=== PATIENT | female | born 1950 | race Caucasian/White ===

== ENCOUNTER 2017-10-11 10:22 | Inpatient (IN) ==
[2017-10-11] MEDS ORDERED: Ketorolac Inj 30 MG/ML (IVP) Vial IV.PUSH ONE (10:51)
[2017-10-11] MEDS ORDERED: Sodium Chlor 0.9% Inj 500 ML IV.SIG ONE ×2 (10:51→11:57)
--- NOTE | 2017-10-11 11:39 | ED ---
HPI General Chief complaint: Urogenital-Female Stated complaint: Rt Flank Pain/Fever x Yesterday Time Seen by Provider: 10/11/17 10:42 Source: patient Mode of arrival: ambulatory Limitations: no limitations History of Present Illness HPI narrative: Patient is a 67-year-old female who comes in fever and right- sided abdominal pain. She was here 2 days ago and was diagnosed with a 7 mm obstructing renal stone. She was discharged with prescriptions for Flomax and pain medicine and advised follow-up with urology. She says she called the urologist's office yesterday with no answer. She says yesterday she started to develop a fever. She says she had a temperature of 102.7 this morning. She says she has not taken anything for her fever or her pain. She has had some nausea, but denies any vomiting. She says the pain started in her right flank 2 days ago, but now is in the right lower quadrant. She denies any difficulty urinating. She denies any dysuria. She says that she has had problems in the past when she became febrile and was worried that was going to happen again. Severity is moderate. Related Data Home Medications Medication Instructions Recorded Confirmed atenolol 50 mg PO DAILY 10/11/17 10/11/17 atorvastatin [Lipitor] 10 mg PO DAILY 10/11/17 10/11/17 Previous Rx's Medication Instructions Recorded hydrocodone-acetaminophen 1 tab PO Q8H PRN #10 tab 10/10/17 ketorolac 10 mg PO Q6H 4 Days #16 tab 10/10/17 Allergies Allergy/AdvReac Type Severity Reaction Status Date / Time No Known Allergies Allergy Verified 10/10/17 01:01 Review of Systems Except as stated in HPI: all other systems reviewed are negative Constitutional Reports fever(s) ENT Denies dizziness Cardiovascular Denies chest pain and Denies dyspnea Respiratory Denies dyspnea Gastrointestinal Reports abdominal pain, Reports nausea and Denies vomiting Genitourinary Denies dysuria Musculoskeletal Denies myalgias and Denies arthralgias Integumentary/Breasts Denies change in pigmentation and Denies lesions Neurologic Denies focal weakness [facility] Medical History Medical History H/O hyperlipidemia (Acute) H/O renal calculi (Acute) H/O: hypertension (Acute) Surgical History Surgical History History of kidney surgery (Acute) Hx of tonsillectomy (Acute) Social History Social History Substance History: No History of Abuse Second Hand Smoke Exposure: Yes Smoking Status: Never smoker How Often Do You Have a Drink Containing Alcohol: Monthly or less Recent Travel in [facility] within the Last 8 Weeks: No Recent Out of Country Travel within the Last 8 Weeks: No Immunization History Tetanus Immunization: <5 Years Hx Influenza Vaccine This Season: No Exam Narrative Exam Narrative: GENERAL: Awake and alert, in no acute distress. SKIN: Focused skin assessment warm/dry. No wounds or signs of infection. HEAD: Atraumatic. Normocephalic. EYES: Pupils equal and round. No scleral icterus. ENT: Mucous membranes pink and moist. NECK: Trachea midline. No JVD. CARDIOVASCULAR: Regular rate and rhythm. No murmur appreciated. RESPIRATORY: No accessory muscle use. Clear to auscultation. Breath sounds equal bilaterally. GASTROINTESTINAL: Abdomen soft, non-tender, nondistended. MUSCULOSKELETAL: No obvious deformities. No clubbing. No cyanosis. No edema. NEUROLOGICAL: Awake and alert. No obvious cranial nerve deficits. Motor grossly within normal limits. Normal speech. PSYCHIATRIC: Appropriate mood and affect; insight and judgment normal. Course Reevaluation(s) Reevaluation #1: Patient became acutely altered. She started saying things that did not make sense. There is no focal weakness on exam. I believe her symptoms are due to sepsis. However, CT of the head has been ordered. Time: 12:04 Reevaluation #2: Patient has return to her baseline mental status. Time: 12:30 Initial Documented Vital Signs Temperature 99.9 F H 10/11/17 10:28 Pulse Rate 103 H 10/11/17 10:28 Respiratory Rate 16 10/11/17 10:28 Blood Pressure 128/66 10/11/17 10:28 Pulse Oximetry 95 10/11/17 10:28 Last Documented Vital Signs Temperature 100.3 F H 10/12/17 08:00 Pulse Rate 83 10/12/17 08:00 Respiratory Rate 18 10/12/17 08:00 Blood Pressure 134/68 10/12/17 08:00 Pulse Oximetry 96 10/12/17 09:21 Medical Decision Making [facility] Narrative Medical decision making narrative: Patient is a 67-year-old female who comes in complaining of right lower quadrant abdominal pain. She was here 2 days ago and was found to have enlarged renal stone. She comes back because the pain is changed and she has developed a fever. IV established, labs sent. Patient connected to the cardiac monitor technician. While patient was here, she became acutely altered. She did not have any focal weaknesses. I believe the altered mental status is likely due to sepsis. She did quickly return to baseline mental status. Patient given IV fluids, started on vancomycin and Zosyn. CT abdomen and pelvis performed shows a large obstructing stone with hydronephrosis. Patient' s labs show an elevated white blood cell count. Creatinine has increased from 1.1 to 1.6. Her total bilirubin is also elevated to 1.7. Lactic acid is 3.4. She is currently not tender in the right upper quadrant. Urology consulted, Dr. Frank jc several times without response. Patient will be admitted for further management. Differential Diagnosis Differential Diagnosis: Sepsis versus dehydration versus electrolyte abnormality versus UTI versus renal stone Medical Records Medical records reviewed: Yes I reviewed the patient's medical records. Lab Data Lab results reviewed: Yes I reviewed the patient's lab results. Result diagrams: 10/12/17 05:09 10/12/17 05:19 Lab Results 10/11/17 10/11/17 10/11/17 Range/Units 11:55 11:55 11:55 CBC w Diff Auto diff final WBC 16.4 H (4.0-11.0) th/mm3 RBC 4.03 (4.00-5.30) mil/mm3 Hgb 12.4 D (11.6-15.3) gm/dL Hct 36.9 (35.0-46.0) % MCV 91.7 (80.0-100.0) fL MCH 30.7 (27.0-34.0) pg MCHC 33.5 (32.0-36.0) % RDW 12.5 (11.6-17.2) % Plt Count 235 D (150-450) th/mm3 MPV 8.0 (7.0-11.0) fL Neut % (Auto) 87.6 H (16.0-70.0) % Lymph % (Auto) 9.2 (9.0-44.0) % Izard % (Auto) 2.3 (0.0-8.0) % Eos % (Auto) 0.0 (0.0-4.0) % Baso % (Auto) 0.9 (0.0-2.0) % Neut # (Auto) 14.4 H (1.8-7.7) th/mm3 Lymph # (Auto) 1.5 (1.0-4.8) th/mm3 Izard # (Auto) 0.4 (0.0-0.9) th/mm3 Eos # (Auto) 0.0 (0.0-0.4) th/mm3 Baso # (Auto) 0.1 (0.0-0.2) th/mm3 WBC Differential . Differential Comment . Sodium 135 L (136-145) meq/L Potassium 4.2 (3.5-5.1) meq/L Chloride 102 (98-107) meq/L Carbon Dioxide 22.6 (21.0-32.0) meq/L Anion Gap 10 (5-15) meq/L BUN 18 (7-18) mg/dL Creatinine 1.60 H (0.50-1.00) mg/dL Estimated GFR 32 L (>89) mL/min Random Glucose 159 H (74-106) mg/dL Lactic Acid 3.4 H (0.4-2.0) mmol/L Calcium 8.8 (8.5-10.1) mg/dL Total Bilirubin 1.7 H (0.2-1.0) mg/dL AST 23 (15-37) U/L ALT 22 (10-53) U/L Alkaline Phosphatase 96 (45-117) U/L Total Protein 7.3 D (6.4-8.2) g/dL Albumin 3.3 L D (3.4-5.0) g/dL Urine Color (Yellw/Straw) Urine Clarity (Clear) Urine pH (5.0-8.5) Ur Specific Terrell (1.002-1.035) Urine Protein (Neg-Trace) mg/dL Urine Glucose (UA) (Negative) mg/dL Urine Ketones (Negative) mg/dL Urine Occult Blood (Negative) Urine Nitrate (Negative) Urine Bilirubin (Negative) Urine Urobilinogen (Less than 2) mg/dL Ur Leukocyte Esterase (Negative) Urine RBC (0-3) /hpf Urine WBC (0-5) /hpf Urine WBC Clumps (None) Ur Squamous Epith Cells (0-5) /hpf Urine Bacteria (None) /hpf Micro UA Comment Urine Culture Comments 10/11/17 10/12/17 10/12/17 Range/Units 13:30 05:09 05:19 CBC w Diff Auto diff final WBC 17.5 H (4.0-11.0) th/mm3 RBC 3.62 L (4.00-5.30) mil/mm3 Hgb 11.1 L (11.6-15.3) gm/dL Hct 33.3 L (35.0-46.0) % MCV 92.0 (80.0-100.0) fL MCH 30.7 (27.0-34.0) pg MCHC 33.3 (32.0-36.0) % RDW 12.8 (11.6-17.2) % Plt Count 213 (150-450) th/mm3 MPV 8.4 (7.0-11.0) fL Neut % (Auto) 85.1 H (16.0-70.0) % Lymph % (Auto) 7.1 L (9.0-44.0) % Izard % (Auto) 7.2 (0.0-8.0) % Eos % (Auto) 0.4 (0.0-4.0) % Baso % (Auto) 0.2 (0.0-2.0) % Neut # (Auto) 14.9 H (1.8-7.7) th/mm3 Lymph # (Auto) 1.2 (1.0-4.8) th/mm3 Izard # (Auto) 1.3 H (0.0-0.9) th/mm3 Eos # (Auto) 0.1 (0.0-0.4) th/mm3 Baso # (Auto) 0.0 (0.0-0.2) th/mm3 WBC Differential . Differential Comment . Sodium 141 (136-145) meq/L Potassium 4.3 (3.5-5.1) meq/L Chloride 109 H (98-107) meq/L Carbon Dioxide 24.1 (21.0-32.0) meq/L Anion Gap 8 (5-15) meq/L BUN 18 (7-18) mg/dL Creatinine 1.10 H (0.50-1.00) mg/dL Estimated GFR 50 L (>89) mL/min Random Glucose 126 H (74-106) mg/dL Lactic Acid (0.4-2.0) mmol/L Calcium 8.3 L (8.5-10.1) mg/dL Total Bilirubin (0.2-1.0) mg/dL AST (15-37) U/L ALT (10-53) U/L Alkaline Phosphatase (45-117) U/L Total Protein (6.4-8.2) g/dL Albumin (3.4-5.0) g/dL Urine Color Yellow (Yellw/Straw) Urine Clarity Clear (Clear) Urine pH 6.0 (5.0-8.5) Ur Specific Terrell 1.010 (1.002-1.035) Urine Protein 100 H (Neg-Trace) mg/dL Urine Glucose (UA) Negative (Negative) mg/dL Urine Ketones Negative (Negative) mg/dL Urine Occult Blood Small H (Negative) Urine Nitrate Positive H (Negative) Urine Bilirubin Negative (Negative) Urine Urobilinogen 0.2 (Less than 2) mg/dL Ur Leukocyte Esterase Small H (Negative) Urine RBC 0-3 (0-3) /hpf Urine WBC 21-50 H (0-5) /hpf Urine WBC Clumps Few H (None) Ur Squamous Epith Cells 0-5 (0-5) /hpf Urine Bacteria Few H (None) /hpf Micro UA Comment Cath-culture ind Urine Culture Comments Cath-cult indicated Imaging Data Radiologist's impression: Abdomen/Pelvis CT 10/11/17 10:51 CONCLUSION: Head CT 10/11/17 11:54 CONCLUSION: Chest X-Ray 10/11/17 13:45 CONCLUSION: No acute cardiopulmonary disease. There is no evidence of pneumonia. abd/pelvis: 1. Relatively large stone of the right ureter, has migrated slightly more distal in the interim, now at the level of S2. There is persistent high-grade obstruction but slightly decreased in the interim. The stone can be seen on the initial warehouse freight handler radiograph.2. Punctate nonobstructing stones of the upper pole of the left kidney are unchanged.3. Small free fluid in the pelvic cavity and mild atelectasis of the visualized lung bases have developed.Electronically signed by: Natanael Grimaldo MD 10/11/2017 12:45 PM EDT Head: FINDINGS: Negative noncontrast head CT. Discharge Plan Discharge Disposition Patient Disposition: 30 Still Patient Discharge Condition Condition: Stable Discharge Details Diagnosis: Sepsis, Calculus, renal Physicians Team ED Provider: Robyn Siegel Primary Care Provider: Nataliya Miller Attending Provider: Carola Villarreal Other Providers: Bro Marie Status ED Status: Left Department Discharge Information Discharge Date/Time: 10/11/17 16:30
[2017-10-11] MEDS ORDERED: Piperacil/Tazo 3.375 GM Premix 50 ML IV.SIG ONE (11:56)
[2017-10-11] MEDS ORDERED: Vancomycin Inj 1 GM/200 ML PIGGYBACK IV.SIG ONE (11:56)
[2017-10-11] MEDS ORDERED: Acetaminophen 325 MG Tablet PO ONE (12:05)
[2017-10-11 12:09] LABS: Baso # (Auto) 0.1 th/mm3 (0.0-0.2); Baso % (Auto) 0.9 % (0.0-2.0); Hematocrit 36.9 % (35.0-46.0); Hemoglobin 12.4 gm/dL (11.6-15.3); Lymph # (Auto) 1.5 th/mm3 (1.0-4.8); Lymph % (Auto) 9.2 % (9.0-44.0); Mean Corpuscular HGB Conc 33.5 % (32.0-36.0); Mean Corpuscular Hemoglobin 30.7 pg (27.0-34.0); Mean Corpuscular Volume 91.7 fL (80.0-100.0); Mono # (Auto) 0.4 th/mm3 (0.0-0.9); Mono % (Auto) 2.3 % (0.0-8.0); Neut # (Auto) 14.4 th/mm3 (1.8-7.7); Neut % (Auto) 87.6 % (16.0-70.0); Platelet Count 235 th/mm3 (150-450); Red Blood Count 4.03 mil/mm3 (4.00-5.30); Red Cell Distribution Width 12.5 % (11.6-17.2); White Blood Count 16.4 th/mm3 (4.0-11.0)
[2017-10-11 12:16] LABS: Chloride 102 meq/L (98-107); Potassium 4.2 meq/L (3.5-5.1); Sodium 135 meq/L (136-145)
[2017-10-11 12:19] LABS: Calcium 8.8 mg/dL (8.5-10.1)
[2017-10-11 12:31] LABS: Alanine Aminotransferase 22 U/L (10-53); Albumin 3.3 g/dL (3.4-5.0); Alkaline Phosphatase 96 U/L (45-117); Anion Gap 10 meq/L (5-15); Aspartate Aminotransferase 23 U/L (15-37); Blood Urea Nitrogen 18 mg/dL (7-18); Carbon Dioxide 22.6 meq/L (21.0-32.0); Glomerular Filtration Rate 32 mL/min (>89); Glucose,Random 159 mg/dL (74-106); Total Protein 7.3 g/dL (6.4-8.2)
--- NOTE | 2017-10-11 12:35 | CT ---
EXAM DATE: 10/11/2017 12:12 PM EDT AGE/SEX: 67 years / Female INDICATIONS: Altered mental status. Fever. CLINICAL DATA: This is the patient's initial encounter. Patient reports that signs and symptoms have been present for 1 day and indicates a pain score of 0/10. MEDICAL/SURGICAL HISTORY: Renal calculi. Hypertension. None. RADIATION DOSE: 52.71 CTDI (mGy) COMPARISON: No prior exams available for comparison. TECHNIQUE: CT of the head without contrast. Using automated exposure control and adjustment of the mA and/or kV according to patient size, radiation dose was kept as low as reasonably achievable to ob tain optimal diagnostic quality images. DICOM format image data is available electronically for revi ew and comparison. FINDINGS: Negative noncontrast head CT. 1. . Electronically signed by: Natanael Grimaldo MD 10/11/2017 12:34 PM EDT
--- NOTE | 2017-10-11 12:46 | CT ---
EXAM DATE: 10/11/2017 12:13 PM EDT AGE/SEX: 67 years / Female INDICATIONS: Right flank pain. Fever. CLINICAL DATA: This is the patient's initial encounter. Patient reports that signs and symptoms have been present for 1 day and indicates a pain score of 3/10. MEDICAL/SURGICAL HISTORY: Renal calculi. Hypertension. None. RADIATION DOSE: 13.25 CTDI (mGy) COMPARISON: [facility], CT ABDOMEN & PELVIS W/O CONTRAST, 10/10/2017. . TECHNIQUE: Multiple contiguous axial images were obtained through the abdomen. Images were obtained using multiple row detector helical technique. Using automated exposure control and adjustment of the mA and/or kV according to patient size, radiation dose was kept as low as reasonably achievable to o btain optimal diagnostic quality images. DICOM format image data is available electronically for rev iew and comparison. FINDINGS: The stone in the right ureter as migrated distally several centimeters and now is at the level of S2. In its image orientation, the stone is estimated at approximately 6 x 9 x 9 mm in size. There is mod erate to severe hydronephrosis and hydroureter, slightly decreased in the interim. The perinephric ed [place] has also slightly decreased but the right kidney remains considerably swollen. Small free fluid h as developed in the pelvic cul-de-sac. Tiny nonobstructing stones of the upper pole of the left kidney again noted and unchanged. Mild atelectasis has developed of the visualized lung bases. Noncontrast appearance of the visualized liver, spleen, pancreas and adrenal glands within normal limits. No obstruction or acute inflammator y changes are seen of the gastrointestinal tract. Sigmoid colon diverticulosis again noted. Multiple gallstones are again seen. 1. Relatively large stone of the right ureter, has migrated slightly more distal in the interim, now at the level of S2. There is persistent high-grade obstruction but slightly decreased in the interim . The stone can be seen on the initial housekeeper/custodian/laundry worker radiograph. 2. Punctate nonobstructing stones of the upper pole of the left kidney are unchanged. 3. Small free fluid in the pelvic cavity and mild atelectasis of the visualized lung bases have deve loped. Electronically signed by: Natanael Grimaldo MD 10/11/2017 12:45 PM EDT
[2017-10-11 14:16] LABS: Bilirubin,Urine Negative (Negative); Clarity,Urine Clear (Clear); Color,Urine Yellow (Yellw/Straw); Glucose,Urine (UA) Negative (Negative); Leukocyte Esterase,Urine Small (Negative); Nitrite,Urine Positive (Negative); Urobilinogen,Urine 0.2 mg/dL (Less than 2)
--- NOTE | 2017-10-11 14:17 | XR ---
EXAM DATE: 10/11/2017 2:11 PM EDT AGE/SEX: 67 years / Female INDICATIONS: Fever. Kidney stones CLINICAL DATA: This is the patient's initial encounter. Patient reports that signs and symptoms have been present for 2 days and indicates a pain score of 9/10. MEDICAL/SURGICAL HISTORY: None. None. COMPARISON: No prior exams available for comparison. FINDINGS: A single AP view of the chest demonstrates the lungs to be symmetrically aerated without evidence of mass, infiltrate or effusion. The cardiomediastinal contours are unremarkable. Osseous structures a re intact. CONCLUSION: No acute cardiopulmonary disease. There is no evidence of pneumonia. Electronically signed by: Hao Waite MD 10/11/2017 2:16 PM EDT
[2017-10-11 14:21] LABS: Bacteria,Urine Few /hpf; RBC,Urine 0-3 /hpf (0-3); Squamous Epithelial Cell,Urine 0-5 /hpf (0-5); WBC,Urine 21-50 /hpf (0-5)
[2017-10-11] MEDS ORDERED: Temazepam 15 MG Capsule PO PRN (15:38)
[2017-10-11] MEDS ORDERED: Sod Chloride 0.9% Inj 1,000 ML IV.CONT SCH (15:45)
[2017-10-11] MEDS: Sod Chloride 0.9% Inj 1,000 ML IV.CONT SCH (18:41)
--- NOTE | 2017-10-11 20:44 | P.HP ---
History of Present Illness Service: medicine Primary Care Physician: Ntaaliya Miller MD History of Present Illness: 67 y/o female with prior hx of kidney stones woke with right flank pain 2 days ago that she recognized as symptomatic of her kidney stones. She presented to the ER where imaging confirmed the presence of the stones. She was discharged on toradol and hydrocodone with instructions to f/u with urology. She states she called the urologist office multiple times with no response. She denies having any further flank pain. She did however develope a fever up to 102 that prompted her return to the ER. She states she had been urinating unitl earlier today. She denies cramping or nausea. Her last bout of kdiney stones was over 10 yrs ago. She states one bout was so bad she states they had to do surgery to "clean them out" She tells me she was told she had 2 types of stones, one was calcium she doesnt know the other. In the ER her temp was 102 there was a questionable period of confusion felt to be due to the temp. She tells me that she feels much better now that her temp is improved. CT in the ER showed large stone 6x9x9 in the rt ureter with high grade obstruction with hydronephrosis and hydroureter. Per Dr Siegel she attempted to contact urology and I have admitted the patient for their evaluation and treatment. / - Diagnosis (1) Calculus, renal (2) Sepsis Review of Systems All other systems reviewed negative except as stated in HPI PMFSH - History History Provided By: Patient - Medical History Medical History: Medical History (Last Reviewed 10/11/17 @ 20:35 by Carola Villarreal MD) Recurrent kidney stones H/O hyperlipidemia H/O renal calculi H/O: hypertension - Surgical History Surgical History: Surgical History (Last Updated 10/11/17 @ 20:15 by Carola Villarreal MD) History of kidney surgery Hx of tonsillectomy - Tobacco History Second Hand Smoke Exposure: Yes Smoking Status: Never smoker - Alcohol History How Often Do You Have a Drink Containing Alcohol: Monthly or less - Substance Use History Substance History: No History of Abuse - Travel History Recent Travel in the [place] Within the Last 8 Weeks: No Recent Travel Out of the Country Within the Last 8 Weeks: No - Immunization History Tetanus Immunization: <5 Years Hx Influenza Vaccine This Season: No Medications and Allergies Active Medications: Active Medications Acetaminophen (Tylenol) 650 mg PO Q4H PRN PRN Reason: PAIN 1-10 AND/OR FEVER >101F Al Hydroxide/Mg Hydroxide (Milk Of Edelmira Liirma) 30 ml PO Q12H PRN PRN Reason: Mild Constipation Atenolol (Tenormin) 50 mg PO DAILY [facility] Atorvastatin Calcium (Lipitor) 10 mg PO DAILY [facility] Sodium Chloride (Ns Inj) 1,000 mls @ 150 mls/hr IV.CONT .Q6H40M [facility] Last Admin: 10/11/17 18:41 Dose: 150 mls/hr Piperacillin/Tazobactam/Dextrose (Zosyn 3.375 Gm Premix) 50 mls @ 200 mls/hr IV.SIG Q6H [facility] Senna/Docusate Sodium (Glo-Colace) 1 tab PO BID [facility] Sodium Chloride (Ns Flush) 2 ml IV.FLUSH PRN PRN PRN Reason: FLUSH AFTER USING IV ACCESS Temazepam (Restoril) 15 mg PO HS PRN PRN Reason: INSOMNIA Allergies Allergy/AdvReac Type Severity Reaction Status Date / Time No Known Allergies Allergy Verified 10/10/17 01:01 Home Medications Medication Instructions Recorded Confirmed Type atenolol 50 mg PO DAILY 10/11/17 10/11/17 History atorvastatin [Lipitor] 10 mg PO DAILY 10/11/17 10/11/17 History Exam Vital signs: Vital Signs 10/11/17 10:28 10/11/17 11:00 10/11/17 12:41 Temperature 99.9 F H 103.0 F H Pulse Rate 103 H 112 H Respiratory Rate 16 20 Blood Pressure 128/66 104/68 Pulse Oximetry 95 98 93 L 10/11/17 13:49 10/11/17 15:31 10/11/17 17:25 Temperature 99.8 F H 98.7 F Pulse Rate 98 H 85 75 Respiratory Rate 16 15 20 Blood Pressure 99/54 L 78/48 L 105/59 L Pulse Oximetry 94 L 95 Intake & Output 10/11/17 10/11/17 10/12/17 06:59 18:59 06:59 Intake Total 1550 / 1550 Output Total 120 / 120 Balance 1430 / 1430 Weight 88.7 kg Intake: IV 1550 / 1550 NS Inj 1,000 ML @ 100 mls/hr IV 300 / 300 .CONT .Q10H [facility] Rx#:[id number] Zosyn 3.375 GM Premix 50 ML @ 50 / 50 100 mls/hr IV.SIG ONCE ONE Rx#: [id number] NS Inj 500 ML @ Wide Open IV. 1000 / 1000 SIG BOLUS ONE Rx#:[id number] Vancomycin Inj 1 gm In 200 ml @ 200 / 200 200 mls/hr IV.SIG ONCE ONE Rx# :[id number] Output: Urine 120 / 120 Stool 0 / 0 Other: Date of Last Bowel Movement 10/11/17 Weight On Admission 88.7 kg - Constitutional average body habitus - Routine HEENT Exam Head: Present: normocephalic Eye: Present: EOMI - Routine Neck Exam Present: supple - Routine Respiratory Exam Present: CTA bilaterally - Routine Cardiovascular Exam Present: RRR - Routine Abdominal Exam Present: soft, normoactive bowel sounds - Routine Extremities Exam Present: full ROM - Routine Back/Spine/Pelvis Exam Back/Spine: Present: CVA tenderness Comments: rt cva tenderness - Routine Skin Exam Present: scars Comments: both flanks from prior surgery - Routine Neurological Exam Present: alert, oriented X3 Results - Labs CBC & Chem 7: 10/11/17 11:55 10/11/17 11:55 Labs: Laboratory Results - last 24 hr 10/11/17 10/11/17 10/11/17 11:55 11:55 11:55 CBC w Diff Auto diff final WBC 16.4 H RBC 4.03 Hgb 12.4 D Hct 36.9 MCV 91.7 MCH 30.7 MCHC 33.5 RDW 12.5 Plt Count 235 D MPV 8.0 Neut % (Auto) 87.6 H Lymph % (Auto) 9.2 [place] % (Auto) 2.3 Eos % (Auto) 0.0 Baso % (Auto) 0.9 Neut # (Auto) 14.4 H Lymph # (Auto) 1.5 [place] # (Auto) 0.4 Eos # (Auto) 0.0 Baso # (Auto) 0.1 WBC Differential . Differential Comment . Sodium 135 L Potassium 4.2 Chloride 102 Carbon Dioxide 22.6 Anion Gap 10 BUN 18 Creatinine 1.60 H Estimated GFR 32 L Random Glucose 159 H Lactic Acid 3.4 H Calcium 8.8 Total Bilirubin 1.7 H AST 23 ALT 22 Alkaline Phosphatase 96 Total Protein 7.3 D Albumin 3.3 L D Urine Color Urine Clarity Urine pH Ur Specific [place] Urine Protein Urine Glucose (UA) Urine Ketones Urine Occult Blood Urine Nitrate Urine Bilirubin Urine Urobilinogen Ur Leukocyte Esterase Urine RBC Urine WBC Urine WBC Clumps Ur Squamous Epith Cells Urine Bacteria Micro UA Comment Urine Culture Comments 10/11/17 13:30 CBC w Diff WBC RBC Hgb Hct MCV MCH MCHC RDW Plt Count MPV Neut % (Auto) Lymph % (Auto) [place] % (Auto) Eos % (Auto) Baso % (Auto) Neut # (Auto) Lymph # (Auto) [place] # (Auto) Eos # (Auto) Baso # (Auto) WBC Differential Differential Comment Sodium Potassium Chloride Carbon Dioxide Anion Gap BUN Creatinine Estimated GFR Random Glucose Lactic Acid Calcium Total Bilirubin AST ALT Alkaline Phosphatase Total Protein Albumin Urine Color Yellow Urine Clarity Clear Urine pH 6.0 Ur Specific [place] 1.010 Urine Protein 100 H Urine Glucose (UA) Negative Urine Ketones Negative Urine Occult Blood Small H Urine Nitrate Positive H Urine Bilirubin Negative Urine Urobilinogen 0.2 Ur Leukocyte Esterase Small H Urine RBC 0-3 Urine WBC 21-50 H Urine WBC Clumps Few H Ur Squamous Epith Cells 0-5 Urine Bacteria Few H Micro UA Comment Cath-culture ind Urine Culture Comments Cath-cult indicated - Imaging Impressions Abdomen/Pelvis CT 10/11/17 10:51 CONCLUSION: Head CT 10/11/17 11:54 CONCLUSION: Chest X-Ray 10/11/17 13:45 CONCLUSION: Caprini VTE Risk Assessment Caprini VTE Risk Assessment: Moderate/High Risk (score >= 2) Caprini Risk Assessment Model: Point Value = 1 Point Value = 2 Point Value = 3 Point Value = 5 Age 41-60 Minor surgery BMI > 25 kg/m2 Swollen legs Varicose veins or History of unexplained or recurrent spontaneous Oral contraceptives or hormone replacement Sepsis (< 1 month) Serious lung disease, including pneumonia (< 1 month) Abnormal pulmonary function Acute myocardial infarction Congestive heart failure (< 1 month) History of inflammatory bowel disease Medical patient at bed rest Age 61-74 Arthroscopic surgery Major open surgery (> 45 min) Laparoscopic surgery (> 45 min) Malignancy Confined to bed (> 72 hours) Immobilizing plaster cast Central venous access Age >= 75 History of VTE Family history of VTE Factor V Leiden Prothrombin [id number] Lupus anticoagulant Anticardiolipin antibodies Elevated serum homocysteine Heparin-induced thrombocytopenia Other congenital or acquired thrombophilia Stroke (< 1 month) Elective arthroplasty Hip, pelvis, or leg fracture Acute spinal cord injury (< 1 month) Prophylaxis Regimen: Total Risk Factor Score Risk Level Prophylaxis Regimen 0-1 Low Early ambulation 2 Moderate Order ONE of the following: *Sequential Compression Device (SCD) *Heparin 5000 units SQ BID 3-4 Higher Order ONE of the following medications: *Heparin 5000 units SQ TID *Enoxaparin/Lovenox 40 mg SQ daily (WT < 150 kg, CrCl > 30 mL/min) *Enoxaparin/Lovenox 30 mg SQ daily (WT < 150 kg, CrCl > 10-29 mL/min) *Enoxaparin/Lovenox 30 mg SQ BID (WT < 150 kg, CrCl > 30 mL/min) AND/OR *Sequential Compression Device (SCD) 5 or more Highest Order ONE of the following medications: *Heparin 5000 units SQ TID (Preferred with Epidurals) *Enoxaparin/Lovenox 40 mg SQ daily (WT < 150 kg, CrCl > 30 mL/min) *Enoxaparin/Lovenox 30 mg SQ daily (WT < 150 kg, CrCl > 10-29 mL/min) *Enoxaparin/Lovenox 30 mg SQ BID (WT < 150 kg, CrCl > 30 mL/min) AND *Sequential Compression Device (SCD) Assessment and Plan - Assessment (1) Calculus, renal Code(s): N20.0 - Calculus of kidney Status: Acute Onset Date: ~10/09/17 Plan: obstructing renal calculus causing severe hydronephrosis and hydroureter, she has been admitted for urological evaluation and intervention. Her renal function has already declined from sunday to today. Will hold off on toradol particularly as she is pain free (2) Sepsis Code(s): A41.9 - Sepsis, unspecified organism Status: Acute Onset Date: ~ Plan: she was tachycardic , febrile and relatively hypotensive on presentation with a little confusion, she looks remarkably well now that her fever has improved. Will continue with IV antibiotics and hydration. (2) Sepsis Qualifiers: Sepsis type: sepsis due to unspecified organism Qualified Code(s): A41.9 - Sepsis, unspecified organism
[2017-10-11] MEDS: Piperacil/Tazo 3.375 GM Premix 50 ML IV.SIG SCH (20:50)
[2017-10-11] MEDS: Senna/Docusate Sodium 8.6/50 MG Tablet PO SCH (20:51)
[2017-10-12] MEDS: Sod Chloride 0.9% Inj 1,000 ML IV.CONT SCH ×5 (01:39→23:08)
[2017-10-12] MEDS: Piperacil/Tazo 3.375 GM Premix 50 ML IV.SIG SCH ×4 (01:40→22:55)
[2017-10-12 05:45] LABS: Baso % (Auto) 0.2 % (0.0-2.0); Eos # (Auto) 0.1 th/mm3 (0.0-0.4); Eos % (Auto) 0.4 % (0.0-4.0); Hematocrit 33.3 % (35.0-46.0); Hemoglobin 11.1 gm/dL (11.6-15.3); Lymph # (Auto) 1.2 th/mm3 (1.0-4.8); Lymph % (Auto) 7.1 % (9.0-44.0); Mean Corpuscular HGB Conc 33.3 % (32.0-36.0); Mean Corpuscular Hemoglobin 30.7 pg (27.0-34.0); Mean Platelet Volume 8.4 fL (7.0-11.0); Mono # (Auto) 1.3 th/mm3 (0.0-0.9); Mono % (Auto) 7.2 % (0.0-8.0); Neut # (Auto) 14.9 th/mm3 (1.8-7.7); Neut % (Auto) 85.1 % (16.0-70.0); Platelet Count 213 th/mm3 (150-450); Red Blood Count 3.62 mil/mm3 (4.00-5.30); Red Cell Distribution Width 12.8 % (11.6-17.2); White Blood Count 17.5 th/mm3 (4.0-11.0)
[2017-10-12 05:51] LABS: Potassium 4.3 meq/L (3.5-5.1)
[2017-10-12 05:57] LABS: Calcium 8.3 mg/dL (8.5-10.1)
[2017-10-12 05:58] LABS: Carbon Dioxide 24.1 meq/L (21.0-32.0)
[2017-10-12] MEDS: Atenolol 25 MG Tablet PO SCH (08:57)
[2017-10-12] MEDS: Acetaminophen 325 MG Tablet PO PRN ×2 (09:00→20:32)
--- NOTE | 2017-10-12 12:27 | ECG ---
Date Performed: 10/12/2017 Time Performed: 08:34:38 PTAGE: 67 years EKG: Sinus rhythm NONSPECIFIC T-WAVE ABNORMALITY BORDERLINE ECG PREVIOUS TRACING : 01/05/2004 14.44 Since the previous tracing, no significant change noted DOCTOR: Nicolas Carrion Interpretating Date/Time 10/12/2017 12:25:09
--- NOTE | 2017-10-12 12:31 | P.PN ---
Subjective Interval history: no real pain, urinating today, Physical Exam Vital signs: Vital Signs 10/11/17 12:41 10/11/17 13:49 10/11/17 15:31 Temperature 103.0 F H 99.8 F H Pulse Rate 112 H 98 H 85 Respiratory Rate 20 16 15 Blood Pressure 104/68 99/54 L 78/48 L Pulse Oximetry 93 L 94 L 10/11/17 17:25 10/11/17 20:00 10/12/17 00:00 Temperature 98.7 F 96.2 F L 97.7 F Pulse Rate 75 65 71 Respiratory Rate 20 20 20 Blood Pressure 105/59 L 112/67 103/53 L Pulse Oximetry 95 95 96 10/12/17 08:00 10/12/17 09:21 Temperature 100.3 F H Pulse Rate 83 Respiratory Rate 18 Blood Pressure 134/68 Pulse Oximetry 95 96 Intake & Output 10/11/17 10/12/17 10/12/17 18:59 06:59 18:59 Intake Total 1550 / 1550 1999 50 / 50 Output Total 120 / 120 Balance 1430 / 1430 1999 50 / 50 Weight 88.7 kg 88.9 kg Intake: IV 1550 / 1550 1999 50 / 50 NS Inj 1,000 ML @ 150 mls/hr IV 300 / 300 1900 / 1900 .CONT .Q6H40M [facility] Rx#: [id number] Zosyn 3.375 GM Premix 50 ML @ 50 / 50 100 / 100 50 / 50 200 mls/hr IV.SIG Q6H [facility] Rx#: [id number] NS Inj 500 ML @ Wide Open IV. 1000 / 1000 SIG BOLUS ONE Rx#:[id number] Vancomycin Inj 1 gm In 200 ml @ 200 / 200 200 mls/hr IV.SIG ONCE ONE Rx# :[id number] Oral 0 / 0 Output: Urine 120 / 120 Stool 0 / 0 Other: # Voids 3 Date of Last Bowel Movement 10/11/17 10/10/17 Weight On Admission 88.7 kg - Constitutional no acute distress - Routine HEENT Exam Head: Present: normocephalic - Routine Respiratory Exam Present: CTA bilaterally - Routine Cardiovascular Exam Present: RRR - Routine Abdominal Exam Present: soft, normoactive bowel sounds - Routine Extremities Exam Comments: scds - Routine Skin Exam Present: intact, scars Comments: scars both flanks - Routine Neurological Exam Present: alert, oriented X3 - Routine Psychiatric Exam Present: normal affect Results - Labs CBC & Chem 7: 10/12/17 05:09 10/12/17 05:19 Laboratory Results - last 24 hr 10/11/17 10/11/17 10/11/17 11:55 11:55 13:30 CBC w Diff WBC RBC Hgb Hct MCV MCH MCHC RDW Plt Count MPV Neut % (Auto) Lymph % (Auto) [place] % (Auto) Eos % (Auto) Baso % (Auto) Neut # (Auto) Lymph # (Auto) [place] # (Auto) Eos # (Auto) Baso # (Auto) WBC Differential Differential Comment Sodium Potassium Chloride Carbon Dioxide 22.6 Anion Gap 10 BUN 18 Creatinine 1.60 H Estimated GFR 32 L Random Glucose 159 H Lactic Acid 3.4 H Calcium Total Bilirubin 1.7 H AST 23 ALT 22 Alkaline Phosphatase 96 Total Protein 7.3 D Albumin 3.3 L D Urine Color Yellow Urine Clarity Clear Urine pH 6.0 Ur Specific [place] 1.010 Urine Protein 100 H Urine Glucose (UA) Negative Urine Ketones Negative Urine Occult Blood Small H Urine Nitrate Positive H Urine Bilirubin Negative Urine Urobilinogen 0.2 Ur Leukocyte Esterase Small H Urine RBC 0-3 Urine WBC 21-50 H Urine WBC Clumps Few H Ur Squamous Epith Cells 0-5 Urine Bacteria Few H Micro UA Comment Cath-culture ind Urine Culture Comments Cath-cult indicated 10/12/17 10/12/17 05:09 05:19 CBC w Diff Auto diff final WBC 17.5 H RBC 3.62 L Hgb 11.1 L Hct 33.3 L MCV 92.0 MCH 30.7 MCHC 33.3 RDW 12.8 Plt Count 213 MPV 8.4 Neut % (Auto) 85.1 H Lymph % (Auto) 7.1 L [place] % (Auto) 7.2 Eos % (Auto) 0.4 Baso % (Auto) 0.2 Neut # (Auto) 14.9 H Lymph # (Auto) 1.2 [place] # (Auto) 1.3 H Eos # (Auto) 0.1 Baso # (Auto) 0.0 WBC Differential . Differential Comment . Sodium 141 Potassium 4.3 Chloride 109 H Carbon Dioxide 24.1 Anion Gap 8 BUN 18 Creatinine 1.10 H Estimated GFR 50 L Random Glucose 126 H Lactic Acid Calcium 8.3 L Total Bilirubin AST ALT Alkaline Phosphatase Total Protein Albumin Urine Color Urine Clarity Urine pH Ur Specific [place] Urine Protein Urine Glucose (UA) Urine Ketones Urine Occult Blood Urine Nitrate Urine Bilirubin Urine Urobilinogen Ur Leukocyte Esterase Urine RBC Urine WBC Urine WBC Clumps Ur Squamous Epith Cells Urine Bacteria Micro UA Comment Urine Culture Comments Microbiology 10/11/17 13:30 Clean Catch Urine Urine Culture - Preliminary <10,000 cfu/mL gram negative rods - no further workup 10/11/17 11:55 Blood - Peripheral Aerobic Blood Culture - Preliminary Klebsiella oxytoca 10/11/17 11:55 Blood - Peripheral Anaerobic Blood Culture - Preliminary gram negative rods 10/11/17 12:00 Blood - Peripheral Aerobic Blood Culture - Preliminary gram negative rods 10/11/17 12:00 Blood - Peripheral Anaerobic Blood Culture - Preliminary gram negative rods - Imaging Impressions Abdomen/Pelvis CT 10/11/17 10:51 CONCLUSION: Head CT 10/11/17 11:54 CONCLUSION: Chest X-Ray 10/11/17 13:45 CONCLUSION: No acute cardiopulmonary disease. There is no evidence of pneumonia. Assessment and Plan - Assessment (1) Calculus, renal Code(s): N20.0 - Calculus of kidney Status: Acute Onset Date: ~10/09/17 Plan: for OR for cystoscopy and stent placement today, renal function improved, has not needed pain medications (2) Sepsis Code(s): A41.9 - Sepsis, unspecified organism Status: Acute Onset Date: ~ Plan: she was tachycardic , febrile and relatively hypotensive on presentation with a little confusion, she looks remarkably well now that her fever has improved. Will continue with IV antibiotics and hydration. Blood culture gram - rods klebsiella oxytoca on zosyn, low grade temp this am (2) Sepsis Qualifiers: Sepsis type: sepsis due to unspecified organism Qualified Code(s): A41.9 - Sepsis, unspecified organism
[2017-10-12] MEDS ORDERED: Famotidine PF Inj 20 MG/2 ML Vial ONE (13:05)
[2017-10-12] MEDS ORDERED: Chlorhexidine Gluconate 2% 1 Pack (2 Cloths) TOPICAL SCH (13:15)
[2017-10-12] MEDS ORDERED: Sodium Chlor 0.9% Inj 500 ML IV.SIG SCH (14:00)
--- NOTE | 2017-10-12 15:15 | MB ---
cc: Bro Marie DO DATE: 10/12/2017 HISTORY OF PRESENT ILLNESS: Ms. Avendaño is a pleasant 67-year-old female who presented to the ER with right-sided flank pain and a history of kidney stones. She had a CT scan demonstrating right perinephric stranding with hydroureteronephrosis and a 6-7 mm mid right ureteral calculus causing obstruction. She has been having fevers up to 102 and has been started on IV antibiotics. She does have a history of stones in the past and has undergone lithotripsy, as well as a percutaneous nephrolithotomy for a staghorn calculus. PAST MEDICAL HISTORY: Her medical history includes kidney stones, hyperlipidemia, and hypertension. PAST SURGICAL HISTORY: Percutaneous nephrolithotomy, tonsillectomy, with lithotripsy in the past. SOCIAL HISTORY: Denies smoking, denies using drugs. Drinks alcohol on occasion. FAMILY HISTORY: Noted for stones. REVIEW OF SYSTEMS: Notes right-sided flank pain associated with fever, some nausea. No vomiting at present. Denies chest pain, shortness of breath. Denies abdominal pain. Denies voiding complaints. Denies gait disturbances, bleeding disorders, headaches, psychiatric problems. Remaining review of systems were reviewed and were negative. PHYSICAL EXAMINATION: VITAL SIGNS: Today, temperature 100.3, heart rate 76, respiratory rate 16, 143/83 is her blood pressure. GENERAL: She is a well-developed, well-nourished 67-year-old female in no acute distress. HEENT: Normocephalic, atraumatic. Pupils equal, round, regular and reactive to light. Extraocular movements intact. NECK: Supple. HEART: Rate is regular rate and rhythm. LUNGS: Clear. ABDOMEN: Soft, nontender, nondistended. There is right CVA tenderness noted. EXTREMITIES: Show no evidence of cyanosis, clubbing, or edema. NEUROLOGIC: Cranial nerves 2-12 are intact. LABORATORY DATA: White count 17.5, hemoglobin 11.1, hematocrit 33.3, platelet count of 213. Sodium 141, potassium 4.3, chloride 109, CO2 24.1, BUN of 18, creatinine 1.1, glucose of 126. Urinalysis shows 21-50 white cells and 0-3 red cells. Again, CT scan shows a 7 mm midureteral stone with perinephric stranding and hydronephrosis. ASSESSMENT: This is a 67-year-old female with right-sided renal obstruction due to a 7 mm proximal to midureteral calculus causing obstruction with perinephric stranding. Recommend cystoscopy with right double-J stent insertion. Risks and benefits were discussed with the patient and she is willing to proceed. DO TARCI Flower/arthur/hans , 02:18 PM , 02:23 PM
--- NOTE | 2017-10-12 15:18 | MP ---
cc: Bro Marie DO DATE OF OPERATION: 10/12/2017 PREOPERATIVE DIAGNOSIS: Right hydronephrosis with right midureteral calculus with obstruction, with perinephric stranding. POSTOPERATIVE DIAGNOSIS: Right hydronephrosis with right midureteral calculus with obstruction, with perinephric stranding. PROCEDURE PERFORMED: Cystoscopy, right retrograde study, right double-J stent insertion. SURGEON: Bro Marie DO ANESTHESIA: General LMA. FLUIDS: 500 mL crystalloid. ESTIMATED BLOOD LOSS: None. COMPLICATIONS: None. She tolerated the procedure well. DRAINS: A 6-Barbadian 24-cm right double-J stent and a 16-Barbadian Kelly. INDICATIONS FOR PROCEDURE: Ms. Avendaño is a 67-year-old female with a history of stones, who presented to the emergency room with a right-sided midureteral calculus causing hydronephrosis and obstruction. Decision was made to bring the patient to the operating room to undergo cystoscopy with right double-J stent insertion. Risks and benefits were discussed preoperatively. She is willing to proceed. DESCRIPTION OF PROCEDURE: The patient was brought to the operating room, identified by myself as Marylin Avendaño. She was placed in the dorsal lithotomy position, prepped and draped in the usual sterile fashion, received preprocedure antibiotics, and general LMA anesthesia was administered. A 22-Barbadian cystoscope was inserted in the bladder. Parnell cystoscopy did not show any abnormalities. The right ureteral orifice was identified and a 5-Barbadian open-ended catheter was inserted into the right ureteral orifice and a retrograde pyelogram was performed. The pyelogram showed that the stone was in the midureter with hydroureter and right hydronephrosis. A 0.35 sensor wire was then passed over the wire, up into the kidney and the open-ended catheter was then removed. Leaving the wire in place, a 6-Barbadian 22 cm right double-J stent was passed into the kidney and placed in good position with a good curl in the kidney and bladder, and the bladder was then evacuated. A 16-Barbadian Kelly was inserted at the completion of the procedure and the patient tolerated the procedure well. She will continue on IV antibiotics and then follow up in the office in 1 week to undergo scheduling for a right-sided extracorporeal shockwave lithotripsy. Bro DO TRACI Smith/arthur/hans , 02:21 PM , 02:27 PM
[2017-10-12] MEDS: Senna/Docusate Sodium 8.6/50 MG Tablet PO SCH ×2 (19:29→21:20)
[2017-10-13] MEDS: Piperacil/Tazo 3.375 GM Premix 50 ML IV.SIG SCH ×4 (02:00→21:28)
[2017-10-13] MEDS: Sod Chloride 0.9% Inj 1,000 ML IV.CONT SCH ×3 (05:32→18:43)
--- NOTE | 2017-10-13 07:11 | P.PN ---
Subjective Interval history: Patient complains of no abdominal pain or flank pain. She had a stent placed in the right ureter ureter yesterday. She is on IV antibiotics for positive blood culture. Her blood culture is showing a gram-negative organism (Klebsiella oxytoca). She has no nausea or vomiting. Physical Exam Vital signs: Vital Signs 10/12/17 08:00 10/12/17 09:21 10/12/17 12:35 Temperature 100.3 F H 98.5 F Pulse Rate 83 76 Respiratory Rate 18 16 Blood Pressure 134/68 143/83 H Pulse Oximetry 95 96 94 L 10/12/17 14:30 10/12/17 14:40 10/12/17 14:45 Temperature 97.8 F 97.8 F Pulse Rate 75 71 75 Respiratory Rate 16 16 16 Blood Pressure 125/73 129/76 138/84 Pulse Oximetry 98 93 L 98 10/12/17 16:00 10/12/17 20:00 10/13/17 00:00 Temperature 98.1 F 100.1 F H 99.7 F H Pulse Rate 73 86 73 Respiratory Rate 18 18 18 Blood Pressure 133/66 129/78 120/67 Pulse Oximetry 97 94 L 94 L 10/13/17 04:00 Temperature 98.9 F Pulse Rate Respiratory Rate Blood Pressure Pulse Oximetry Intake & Output 10/12/17 10/12/17 10/13/17 06:59 18:59 06:59 Intake Total 1999 1070 / 1070 2640 / 2640 Output Total 350 / 350 1500 / 1500 Balance 1999 720 / 720 1140 / 1140 Weight 88.9 kg 88.6 kg Intake: IV 1999 750 / 750 2400 / 2400 NS Inj 1,000 ML @ 150 mls/hr IV 1900 / 1900 1999 .CONT .Q6H40M MARILY Rx#: [id number] LR 1000 mL Inj 1,000 ML @ 30 700 / 700 300 / 300 mls/hr IV.SIG .Q24H MARILY Rx#: [id number] Zosyn 3.375 GM Premix 50 ML @ 100 / 100 50 / 50 100 / 100 200 mls/hr IV.SIG Q6H MARILY Rx#: [id number] Oral 0 / 0 320 / 320 240 / 240 Output: Urine 150 / 150 1500 / 1500 Urine Amount (Catheter) 200 / 200 Indwelling Urethral Catheter 200 / 200 Other: # Voids 3 2 Date of Last Bowel Movement 10/10/17 # Bowel Movements 2 Narrative: This is a pleasant white female in no distress. HEENT: Pupils equal, EOMs intact, mouth without lesions Neck: No JVD, neck is supple Heart: Regular rate and rhythm without murmurs or gallops Lungs: Clear to auscultation Abdomen: Soft, nontender, no masses Extremities: No edema, pulses palpated, no calf tenderness Neuro: Alert, oriented, normal motor exam, sensation intact - Urinary Catheter Management Indwelling Urethral Catheter Cath placed during this visit: no Results - Labs CBC & Chem 7: 10/12/17 05:09 10/12/17 05:19 Microbiology 10/11/17 13:30 Clean Catch Urine Urine Culture - Preliminary <10,000 cfu/mL gram negative rods - no further workup 10/11/17 11:55 Blood - Peripheral Aerobic Blood Culture - Preliminary Klebsiella oxytoca 10/11/17 11:55 Blood - Peripheral Anaerobic Blood Culture - Preliminary gram negative rods 10/11/17 12:00 Blood - Peripheral Aerobic Blood Culture - Preliminary gram negative rods 10/11/17 12:00 Blood - Peripheral Anaerobic Blood Culture - Preliminary gram negative rods Laboratory Results - last 48 hr 10/11/17 10/11/17 10/11/17 11:55 11:55 11:55 CBC w Diff Auto diff final WBC 16.4 H RBC 4.03 Hgb 12.4 D Hct 36.9 MCV 91.7 MCH 30.7 MCHC 33.5 RDW 12.5 Plt Count 235 D MPV 8.0 Neut % (Auto) 87.6 H Lymph % (Auto) 9.2 [place] % (Auto) 2.3 Eos % (Auto) 0.0 Baso % (Auto) 0.9 Neut # (Auto) 14.4 H Lymph # (Auto) 1.5 [place] # (Auto) 0.4 Eos # (Auto) 0.0 Baso # (Auto) 0.1 WBC Differential . Differential Comment . Sodium 135 L Potassium 4.2 Chloride 102 Carbon Dioxide 22.6 Anion Gap 10 BUN 18 Creatinine 1.60 H Estimated GFR 32 L Random Glucose 159 H Lactic Acid 3.4 H Calcium 8.8 Total Bilirubin 1.7 H AST 23 ALT 22 Alkaline Phosphatase 96 Total Protein 7.3 D Albumin 3.3 L D Urine Color Urine Clarity Urine pH Ur Specific [place] Urine Protein Urine Glucose (UA) Urine Ketones Urine Occult Blood Urine Nitrate Urine Bilirubin Urine Urobilinogen Ur Leukocyte Esterase Urine RBC Urine WBC Urine WBC Clumps Ur Squamous Epith Cells Urine Bacteria Micro UA Comment Urine Culture Comments 10/11/17 10/12/17 10/12/17 13:30 05:09 05:19 CBC w Diff Auto diff final WBC 17.5 H RBC 3.62 L Hgb 11.1 L Hct 33.3 L MCV 92.0 MCH 30.7 MCHC 33.3 RDW 12.8 Plt Count 213 MPV 8.4 Neut % (Auto) 85.1 H Lymph % (Auto) 7.1 L [place] % (Auto) 7.2 Eos % (Auto) 0.4 Baso % (Auto) 0.2 Neut # (Auto) 14.9 H Lymph # (Auto) 1.2 [place] # (Auto) 1.3 H Eos # (Auto) 0.1 Baso # (Auto) 0.0 WBC Differential . Differential Comment . Sodium 141 Potassium 4.3 Chloride 109 H Carbon Dioxide 24.1 Anion Gap 8 BUN 18 Creatinine 1.10 H Estimated GFR 50 L Random Glucose 126 H Lactic Acid Calcium 8.3 L Total Bilirubin AST ALT Alkaline Phosphatase Total Protein Albumin Urine Color Yellow Urine Clarity Clear Urine pH 6.0 Ur Specific [place] 1.010 Urine Protein 100 H Urine Glucose (UA) Negative Urine Ketones Negative Urine Occult Blood Small H Urine Nitrate Positive H Urine Bilirubin Negative Urine Urobilinogen 0.2 Ur Leukocyte Esterase Small H Urine RBC 0-3 Urine WBC 21-50 H Urine WBC Clumps Few H Ur Squamous Epith Cells 0-5 Urine Bacteria Few H Micro UA Comment Cath-culture ind Urine Culture Comments Cath-cult indicated - Imaging Impressions Chest X-Ray 10/11/17 13:45 CONCLUSION: No acute cardiopulmonary disease. There is no evidence of pneumonia. Impressions Abdomen/Pelvis CT 10/11/17 10:51 CONCLUSION: Head CT 10/11/17 11:54 CONCLUSION: Chest X-Ray 10/11/17 13:45 CONCLUSION: No acute cardiopulmonary disease. There is no evidence of pneumonia. Assessment and Plan - Assessment (1) Calculus, renal Code(s): N20.0 - Calculus of kidney Status: Acute Onset Date: ~10/09/17 (2) Sepsis Code(s): A41.9 - Sepsis, unspecified organism Status: Acute Onset Date: ~ (3) Hypertension Code(s): I10 - Essential (primary) hypertension Status: Chronic (4) Hyperlipidemia Code(s): E78.5 - Hyperlipidemia, unspecified Status: Chronic (5) Hydronephrosis of right kidney Code(s): N13.30 - Unspecified hydronephrosis Status: Acute - Plan Plan: Her blood cultures growing out a Klebsiella organism so she will she will be continued on her Zosyn IV. Her Kelly catheter is being managed by the urologist. Her IV antibiotics will at least be continued until sensitivities are obtained. She is doing well without any current complaints. A CBC and BMP will be repeated in the morning.
[2017-10-13] MEDS: Acetaminophen 325 MG Tablet PO PRN ×2 (08:26→21:29)
[2017-10-13] MEDS: Atenolol 25 MG Tablet PO SCH (08:26)
[2017-10-13] MEDS: Senna/Docusate Sodium 8.6/50 MG Tablet PO SCH ×2 (08:27→21:28)
--- NOTE | 2017-10-13 20:57 | XR ---
EXAM DATE: 10/13/2017 8:53 PM EDT AGE/SEX: 67 years / Female INDICATIONS: Short of breath CLINICAL DATA: This is the patient's initial encounter. Patient reports that signs and symptoms have been present for 1 day and indicates a pain score of 0/10. MEDICAL/SURGICAL HISTORY: . Renal calculi. Hypertension None. COMPARISON: HPO, CHEST 1V SINGLE AP, 10/11/2017. . FINDINGS: Consolidative changes right lower lobe. Left lung clear. The heart and pulmonary vascularity are norm al. . The portion of the bony skeleton visualized is unremarkable . CONCLUSION: Consolidative changes right lower lobe. Electronically signed by: Michael Arce MD 10/13/2017 8:56 PM EDT
[2017-10-14] MEDS: Piperacil/Tazo 3.375 GM Premix 50 ML IV.SIG SCH ×2 (02:00→08:10)
[2017-10-14] MEDS: Sod Chloride 0.9% Inj 1,000 ML IV.CONT SCH ×4 (02:14→19:45)
[2017-10-14] MEDS: Levofloxacin 500 mg Premix Inj 500 MG/100 ML PIGGYBACK IV.SIG SCH (06:33)
[2017-10-14 07:33] LABS: Baso % (Auto) 0.3 % (0.0-2.0); Eos # (Auto) 0.1 th/mm3 (0.0-0.4); Eos % (Auto) 0.9 % (0.0-4.0); Hematocrit 31.5 % (35.0-46.0); Hemoglobin 10.5 gm/dL (11.6-15.3); Lymph # (Auto) 1.2 th/mm3 (1.0-4.8); Mean Corpuscular HGB Conc 33.4 % (32.0-36.0); Mean Corpuscular Hemoglobin 30.5 pg (27.0-34.0); Mean Corpuscular Volume 91.5 fL (80.0-100.0); Mean Platelet Volume 8.2 fL (7.0-11.0); Mono % (Auto) 7.1 % (0.0-8.0); Neut # (Auto) 11.1 th/mm3 (1.8-7.7); Neut % (Auto) 82.7 % (16.0-70.0); Platelet Count 274 th/mm3 (150-450); Red Blood Count 3.45 mil/mm3 (4.00-5.30); Red Cell Distribution Width 12.9 % (11.6-17.2); White Blood Count 13.4 th/mm3 (4.0-11.0)
[2017-10-14 07:41] LABS: Potassium 3.5 meq/L (3.5-5.1)
[2017-10-14 07:43] LABS: Calcium 7.9 mg/dL (8.5-10.1)
[2017-10-14 07:44] LABS: Carbon Dioxide 25.8 meq/L (21.0-32.0)
[2017-10-14] MEDS: Atenolol 25 MG Tablet PO SCH (08:11)
[2017-10-14] MEDS: Senna/Docusate Sodium 8.6/50 MG Tablet PO SCH ×2 (08:11→20:55)
--- NOTE | 2017-10-14 08:20 | P.PN ---
Subjective Interval history: Patient was experiencing some slight shortness of breath with ambulation during the night and her oxygen saturations dropped down a little bit. A chest x-ray done showed a right lower lobe consolidation that was new from prior chest x- ray. Some duonebulizer treatments were added and that has helped her breathing. She has no flank or back pain. No calf pain. Denies any wheezing. No shortness of breath at rest. No chest pain. Physical Exam Vital signs: Vital Signs 10/13/17 08:00 10/13/17 11:02 10/13/17 14:57 Temperature 99.7 F H 100 F H Pulse Rate 70 74 Respiratory Rate 20 20 Blood Pressure 114/68 131/75 Pulse Oximetry 97 98 98 10/13/17 20:00 10/13/17 20:56 10/14/17 00:00 Temperature 102.3 F H 99.2 F Pulse Rate 93 H 82 Respiratory Rate 20 22 Blood Pressure 143/74 H 131/67 Pulse Oximetry 88 L 94 L 94 L 10/14/17 04:00 10/14/17 07:16 Temperature 96.8 F L 99.9 F H Pulse Rate 84 Respiratory Rate 20 Blood Pressure 132/72 Pulse Oximetry 97 Intake & Output 10/13/17 10/14/17 10/14/17 18:59 06:59 18:59 Intake Total 3420 / 3420 580 / 580 Output Total 3050 / 3050 Balance 370 / 370 580 / 580 Weight 88.2 kg Intake: IV 2100 / 2100 100 / 100 NS Inj 1,000 ML @ 150 mls/hr IV 1999 / 1999 .CONT .Q6H40M [facility]ILY Rx#: [id number] Zosyn 3.375 GM Premix 50 ML @ 100 / 100 100 / 100 200 mls/hr IV.SIG Q6H MARILY Rx#: [id number] Oral 1320 / 1320 480 / 480 Output: Urine Amount (Catheter) 3050 / 3050 Indwelling Urethral Catheter 3050 / 3050 Other: # Voids 3 # Bowel Movements 1 Narrative: Exam: This is a pleasant [] in no distress. HEENT: Pupils equal, EOMs intact, mouth without lesions Neck: No JVD, neck is supple Heart: Regular rate and rhythm without murmurs or gallops Lungs: Clear to auscultation other than slight decreased breath sounds in the right lung base. Abdomen: Soft, nontender, no masses Extremities: No edema, pulses palpated, no calf tenderness Neuro: Alert, oriented, normal motor exam, sensation intact - Urinary Catheter Management Indwelling Urethral Catheter Cath placed during this visit: no Results - Labs CBC & Chem 7: 10/14/17 06:30 10/14/17 06:30 Laboratory Results - last 24 hr 10/11/17 10/14/17 10/14/17 13:30 06:30 06:30 CBC w Diff Auto diff final WBC 13.4 H RBC 3.45 L Hgb 10.5 L Hct 31.5 L MCV 91.5 MCH 30.5 MCHC 33.4 RDW 12.9 Plt Count 274 MPV 8.2 Neut % (Auto) 82.7 H Lymph % (Auto) 9.0 [place] % (Auto) 7.1 Eos % (Auto) 0.9 Baso % (Auto) 0.3 Neut # (Auto) 11.1 H Lymph # (Auto) 1.2 [place] # (Auto) 1.0 H Eos # (Auto) 0.1 Baso # (Auto) 0.0 WBC Differential . Differential Comment . Sodium 142 Potassium 3.5 Chloride 109 H Carbon Dioxide 25.8 Anion Gap 7 BUN 6 L Creatinine 0.79 Estimated GFR 73 L Random Glucose 110 H Calcium 7.9 L Urine Color Yellow Urine Clarity Clear Urine pH 6.0 Ur Specific [place] 1.010 Urine Protein 100 H Urine Glucose (UA) Negative Urine Ketones Negative Urine Occult Blood Small H Urine Nitrate Positive H Urine Bilirubin Negative Urine Urobilinogen 0.2 Ur Leukocyte Esterase Small H Urine RBC 0-3 Urine WBC 21-50 H Urine WBC Clumps Few H Ur Squamous Epith Cells 0-5 Urine Bacteria Few H Micro UA Comment Cath-culture ind Urine Culture Comments Cath-cult indicated Microbiology 10/11/17 13:30 Clean Catch Urine Urine Culture - Preliminary gram negative rods 10/11/17 12:00 Blood - Peripheral Aerobic Blood Culture - Preliminary gram negative rods 10/11/17 12:00 Blood - Peripheral Anaerobic Blood Culture - Preliminary gram negative rods 10/11/17 11:55 Blood - Peripheral Aerobic Blood Culture - Preliminary Klebsiella oxytoca 10/11/17 11:55 Blood - Peripheral Anaerobic Blood Culture - Preliminary gram negative rods - Imaging Impressions Chest X-Ray 10/13/17 20:30 . CONCLUSION: Consolidative changes right lower lobe. Assessment and Plan - Assessment (1) Calculus, renal Code(s): N20.0 - Calculus of kidney Status: Acute Onset Date: ~10/09/17 (2) Sepsis Code(s): A41.9 - Sepsis, unspecified organism Status: Acute Onset Date: ~ (3) Hypertension Code(s): I10 - Essential (primary) hypertension Status: Chronic (4) Hyperlipidemia Code(s): E78.5 - Hyperlipidemia, unspecified Status: Chronic (5) Hydronephrosis of right kidney Code(s): N13.30 - Unspecified hydronephrosis Status: Acute - Plan Plan: Her blood cultures growing out a Klebsiella organism so she will she will be continued on her Zosyn until her sensitivities are available. Her WBC count is going down also and she is afebrile. Her chest x-ray early this morning shows a consolidation of the right lower lobe. Because of this we will add Levaquin IV for possible pneumonia. She will be continued on nebulizer treatments and has been started on incentive spirometry as well. She is on SCDs for DVT prophylaxis. Her Kelly catheter was removed during the night and she has been urinating okay without any problems. (2) Sepsis Qualifiers: Qualified Code(s): A41.9 - Sepsis, unspecified organism
[2017-10-14] MEDS: Piperacil/Tazo 4.5 GM Premix 4.5 GM/100 ML BAG IV.SIG SCH ×2 (13:50→19:51)
[2017-10-14] MEDS: Acetaminophen 325 MG Tablet PO PRN (19:51)
[2017-10-15] MEDS: Piperacil/Tazo 4.5 GM Premix 4.5 GM/100 ML BAG IV.SIG SCH ×4 (02:02→20:58)
[2017-10-15] MEDS: Sod Chloride 0.9% Inj 1,000 ML IV.CONT SCH ×3 (04:19→15:13)
[2017-10-15] MEDS: Levofloxacin 500 mg Premix Inj 500 MG/100 ML PIGGYBACK IV.SIG SCH (05:48)
[2017-10-15 06:31] LABS: Potassium 3.3 meq/L (3.5-5.1)
[2017-10-15 06:32] LABS: Baso # (Auto) 0.1 th/mm3 (0.0-0.2); Baso % (Auto) 0.4 % (0.0-2.0); Eos # (Auto) 0.2 th/mm3 (0.0-0.4); Eos % (Auto) 1.7 % (0.0-4.0); Hematocrit 30.2 % (35.0-46.0); Hemoglobin 10.3 gm/dL (11.6-15.3); Lymph # (Auto) 1.7 th/mm3 (1.0-4.8); Lymph % (Auto) 11.8 % (9.0-44.0); Mean Corpuscular HGB Conc 34.2 % (32.0-36.0); Mean Corpuscular Hemoglobin 31.5 pg (27.0-34.0); Mean Corpuscular Volume 92.1 fL (80.0-100.0); Mono # (Auto) 1.2 th/mm3 (0.0-0.9); Mono % (Auto) 8.3 % (0.0-8.0); Neut # (Auto) 11.3 th/mm3 (1.8-7.7); Neut % (Auto) 77.8 % (16.0-70.0); Platelet Count 309 th/mm3 (150-450); Red Blood Count 3.28 mil/mm3 (4.00-5.30); Red Cell Distribution Width 12.9 % (11.6-17.2); White Blood Count 14.5 th/mm3 (4.0-11.0)
[2017-10-15 06:36] LABS: Calcium 8.5 mg/dL (8.5-10.1)
--- NOTE | 2017-10-15 08:07 | P.PN ---
Subjective Interval history: No chest pain. No shortness of breath. She is off oxygen. Physical Exam Vital signs: Vital Signs 10/14/17 09:36 10/14/17 11:19 10/14/17 15:00 Temperature 99.9 F H 99.8 F H Pulse Rate 74 85 Respiratory Rate 20 20 Blood Pressure 124/66 162/76 H Pulse Oximetry 95 94 L 96 10/14/17 19:40 10/14/17 20:00 10/15/17 00:00 Temperature 101.3 F H 97.9 F Pulse Rate 82 77 Respiratory Rate 18 18 Blood Pressure 149/69 H 115/65 Pulse Oximetry 95 93 L 96 Intake & Output 10/14/17 10/15/17 10/15/17 18:59 06:59 18:59 Intake Total 3150 / 3150 2200 / 2200 Balance 3150 / 3150 2200 / 2200 Weight 91.7 kg Intake: IV 2250 / 2250 2200 / 2200 NS Inj 1,000 ML @ 150 mls/hr IV 1999 / 1999 .CONT .Q6H40M [facility]ILY Rx#: [id number] Levaquin 500 mg Premix Inj 500 100 / 100 mg In 100 ml @ 100 mls/hr IV. SIG Q24H [facility]ILY Rx#:[id number] Zosyn 3.375 GM Premix 50 ML @ 50 / 50 200 mls/hr IV.SIG Q6H MARILY Rx#: [id number] Zosyn 4.5 GM Premix 4.5 gm In 100 / 100 200 / 200 100 ml @ 200 mls/hr IV.SIG Q6H MARILY Rx#:[id number] Oral 900 / 900 Other: # Voids 4 3 Date of Last Bowel Movement 10/14/17 Narrative: Exam: This is a pleasant [] in no distress. HEENT: Pupils equal, EOMs intact, mouth without lesions Neck: No JVD, neck is supple Heart: Regular rate and rhythm without murmurs or gallops Lungs: Clear to auscultation other than slight decreased breath sounds in the right lung base. Abdomen: Soft, nontender, no masses Extremities: No edema, pulses palpated, no calf tenderness Neuro: Alert, oriented, normal motor exam, sensation intact Results - Labs CBC & Chem 7: 10/15/17 04:40 10/15/17 04:40 Laboratory Results - last 24 hr 10/14/17 10/15/17 10/15/17 06:30 04:40 04:40 CBC w Diff Auto diff final WBC 14.5 H RBC 3.28 L Hgb 10.3 L Hct 30.2 L MCV 92.1 MCH 31.5 MCHC 34.2 RDW 12.9 Plt Count 309 MPV 8.0 Neut % (Auto) 77.8 H Lymph % (Auto) 11.8 [place] % (Auto) 8.3 H Eos % (Auto) 1.7 Baso % (Auto) 0.4 Neut # (Auto) 11.3 H Lymph # (Auto) 1.7 [place] # (Auto) 1.2 H Eos # (Auto) 0.2 Baso # (Auto) 0.1 WBC Differential . Differential Comment . Sodium 143 Potassium 3.3 L Chloride 108 H Carbon Dioxide 27.0 Anion Gap 8 BUN 6 L 6 L Creatinine 0.79 0.81 Estimated GFR 73 L 71 L Random Glucose 96 Calcium 8.5 Microbiology 10/11/17 13:30 Clean Catch Urine Urine Culture - Final Klebsiella oxytoca 10/11/17 12:00 Blood - Peripheral Aerobic Blood Culture - Final Klebsiella oxytoca 10/11/17 12:00 Blood - Peripheral Anaerobic Blood Culture - Final Klebsiella oxytoca 10/11/17 11:55 Blood - Peripheral Aerobic Blood Culture - Final Klebsiella oxytoca 10/11/17 11:55 Blood - Peripheral Anaerobic Blood Culture - Final Klebsiella oxytoca - Imaging Impressions Chest X-Ray 10/13/17 20:30 . CONCLUSION: Consolidative changes right lower lobe. Assessment and Plan - Assessment (1) Calculus, renal Code(s): N20.0 - Calculus of kidney Status: Acute Onset Date: ~10/09/17 (2) Sepsis Code(s): A41.9 - Sepsis, unspecified organism Status: Acute Onset Date: ~ (3) Right lower lobe pneumonia Code(s): J18.1 - Lobar pneumonia, unspecified organism Status: Acute (4) Hypertension Code(s): I10 - Essential (primary) hypertension Status: Chronic (5) Hyperlipidemia Code(s): E78.5 - Hyperlipidemia, unspecified Status: Chronic (6) Hydronephrosis of right kidney Code(s): N13.30 - Unspecified hydronephrosis Status: Acute - Plan Plan: Her blood cultures growing out a Klebsiella organism so she will she will be continued on her Zosyn until her sensitivities are available. Her WBC count is going down also and she is afebrile. Her chest x-ray on 10-14-17 shows a consolidation of the right lower lobe. Levaquin IV was added then for possible pneumonia. She will be continued on nebulizer treatments and on incentive spirometry as well. She is on SCDs for DVT prophylaxis. Chest x-ray ordered for today. She is ambulating without difficulty and is off oxygen. (2) Sepsis Qualifiers: Qualified Code(s): A41.9 - Sepsis, unspecified organism
--- NOTE | 2017-10-15 09:12 | XR ---
EXAM DATE: 10/15/2017 9:09 AM EDT AGE/SEX: 67 years / Female INDICATIONS: . Short of Breath CLINICAL DATA: This is the patient's subsequent encounter. Patient reports that signs and symptoms h ave been present for 2 days and indicates a pain score of 0/10. MEDICAL/SURGICAL HISTORY: Hypertension. Renal calculi. None. COMPARISON: HPO, CHEST 1V SINGLE AP, 10/13/2017. . FINDINGS: There is borderline cardiomegaly, bilateral pleural effusions are identified. There is no consolidati on. Osseous structures are intact. CONCLUSION: Bilateral pleural effusions. Electronically signed by: Myron Gallardo MD 10/15/2017 9:11 AM EDT
[2017-10-15] MEDS: Atenolol 25 MG Tablet PO SCH (10:06)
[2017-10-15] MEDS: Senna/Docusate Sodium 8.6/50 MG Tablet PO SCH ×2 (10:06→20:29)
[2017-10-15] MEDS: Acetaminophen 325 MG Tablet PO PRN (15:09)
--- NOTE | 2017-10-15 22:28 | CT ---
EXAM DATE: 10/15/2017 9:53 PM EDT AGE/SEX: 67 years / Female INDICATIONS: Pleural effusion. Abnormal chest x-ray. CLINICAL DATA: This is the patient's initial encounter. Patient reports that signs and symptoms have been present for 2 days and indicates a pain score of 0/10. MEDICAL/SURGICAL HISTORY: Hypertension. Renal calculi. Tonsillectomy. RADIATION DOSE: 12.24 CTDI (mGy) COMPARISON: No prior exams available for comparison. TECHNIQUE: Multiple contiguous axial images were obtained through the chest without contrast. Image s were obtained in suspended respiration using multiple row detector helical technique. Using automa josé miguel exposure control and adjustment of the mA and/or kV according to patient size, radiation dose was kept as low as reasonably achievable to obtain optimal diagnostic quality images. DICOM format imag e data is available electronically for review and comparison. FINDINGS: There is left-sided mild airspace disease dominantly in the left lower lobe and a small portion of st ress SPECT left upper lobe. On the right side is more severe airspace disease these especially centrally in the right upper lobe extending into the right perihilar region. There is a small to moderate right effusion and a smaller left effusion. Trace pericardial fluid. No acute bony abnormality identified. CONCLUSION: 1. Small to moderate right effusion and tiny left effusion. 2. Bilateral airspace disease, both consolidative and groundglass in appearance and worse on the rig ht side. Primary differential diagnosis is pneumonia or aspiration. Pulmonary hemorrhage could give a similar appearance. Electronically signed by: Burak Lorenz MD 10/15/2017 10:26 PM EDT
[2017-10-16] MEDS: Piperacil/Tazo 4.5 GM Premix 4.5 GM/100 ML BAG IV.SIG SCH ×4 (02:08→20:24)
[2017-10-16] MEDS: Sod Chloride 0.9% Inj 1,000 ML IV.CONT SCH ×3 (02:08→13:38)
[2017-10-16] MEDS: Levofloxacin 500 mg Premix Inj 500 MG/100 ML PIGGYBACK IV.SIG SCH (05:46)
[2017-10-16 06:42] LABS: Baso % (Auto) 0.4 % (0.0-2.0); Eos # (Auto) 0.3 th/mm3 (0.0-0.4); Eos % (Auto) 2.4 % (0.0-4.0); Hematocrit 29.5 % (35.0-46.0); Hemoglobin 9.9 gm/dL (11.6-15.3); Lymph # (Auto) 2.3 th/mm3 (1.0-4.8); Lymph % (Auto) 18.6 % (9.0-44.0); Mean Corpuscular HGB Conc 33.5 % (32.0-36.0); Mean Corpuscular Hemoglobin 30.6 pg (27.0-34.0); Mean Corpuscular Volume 91.2 fL (80.0-100.0); Mean Platelet Volume 7.8 fL (7.0-11.0); Mono % (Auto) 8.1 % (0.0-8.0); Neut # (Auto) 8.5 th/mm3 (1.8-7.7); Neut % (Auto) 70.5 % (16.0-70.0); Platelet Count 389 th/mm3 (150-450); Red Blood Count 3.23 mil/mm3 (4.00-5.30); Red Cell Distribution Width 12.8 % (11.6-17.2); White Blood Count 12.1 th/mm3 (4.0-11.0)
[2017-10-16 06:51] LABS: Potassium 3.1 meq/L (3.5-5.1)
[2017-10-16 06:53] LABS: Calcium 8.3 mg/dL (8.5-10.1)
[2017-10-16 06:54] LABS: Carbon Dioxide 25.2 meq/L (21.0-32.0)
--- NOTE | 2017-10-16 07:35 | P.PN ---
Subjective Interval history: No chest pain. No shortness of breath. No abdominal pain. Physical Exam Vital signs: Vital Signs 10/15/17 08:00 10/15/17 09:13 10/15/17 12:00 Temperature 98.9 F 96.8 F L Pulse Rate 71 74 Respiratory Rate 18 18 Blood Pressure 135/75 139/82 Pulse Oximetry 96 93 L 96 10/15/17 15:37 10/15/17 19:52 10/15/17 20:00 Temperature 99.0 F 98.9 F Pulse Rate 74 82 Respiratory Rate 18 16 Blood Pressure 134/65 145/70 H Pulse Oximetry 96 93 L 94 L 10/16/17 00:00 Temperature 99.7 F H Pulse Rate 80 Respiratory Rate 16 Blood Pressure 125/62 Pulse Oximetry 94 L Intake & Output 10/15/17 10/16/17 10/16/17 18:59 06:59 18:59 Intake Total 2940 / 2940 1540 / 1540 Balance 2940 / 2940 1540 / 1540 Weight 91.7 kg Intake: IV 2100 / 2100 1300 / 1300 NS Inj 1,000 ML @ 150 mls/hr IV 2000 / 2000 1000 / 1000 .CONT .Q6H40M [facility] Rx#: [id number] Levaquin 500 mg Premix Inj 500 100 / 100 mg In 100 ml @ 100 mls/hr IV. SIG Q24H [facility] Rx#:[id number] Zosyn 4.5 GM Premix 4.5 gm In 100 / 100 200 / 200 100 ml @ 200 mls/hr IV.SIG Q6H [facility] Rx#:[id number] Oral 840 / 840 240 / 240 Other: # Voids 4 2 Date of Last Bowel Movement 10/14/17 10/15/17 # Bowel Movements 5 Narrative: Exam: This is a pleasant [] in no distress. HEENT: Pupils equal, EOMs intact, mouth without lesions Neck: No JVD, neck is supple Heart: Regular rate and rhythm without murmurs or gallops Lungs: Clear to auscultation other than slight decreased breath sounds in the right lung base. Abdomen: Soft, nontender, no masses Extremities: No edema, pulses palpated, no calf tenderness Neuro: Alert, oriented, normal motor exam, sensation intact - Urinary Catheter Management Indwelling Urethral Catheter Cath placed during this visit: no Results - Labs CBC & Chem 7: 07/31/18 05:20 10/16/17 05:20 Laboratory Results - last 24 hr 10/16/17 10/16/17 05:20 05:20 CBC w Diff Auto diff final WBC 12.1 H RBC 3.23 L Hgb 9.9 L Hct 29.5 L MCV 91.2 MCH 30.6 MCHC 33.5 RDW 12.8 Plt Count 389 MPV 7.8 Neut % (Auto) 70.5 H Lymph % (Auto) 18.6 [place] % (Auto) 8.1 H Eos % (Auto) 2.4 Baso % (Auto) 0.4 Neut # (Auto) 8.5 H Lymph # (Auto) 2.3 [place] # (Auto) 1.0 H Eos # (Auto) 0.3 Baso # (Auto) 0.0 WBC Differential . Differential Comment . Sodium 142 Potassium 3.1 L Chloride 107 Carbon Dioxide 25.2 Anion Gap 10 BUN 4 L Creatinine 0.73 Estimated GFR 80 L Random Glucose 104 Calcium 8.3 L Laboratory Results - last 72 hr 10/11/17 10/14/17 10/14/17 13:30 06:30 06:30 CBC w Diff Auto diff final WBC 13.4 H RBC 3.45 L Hgb 10.5 L Hct 31.5 L MCV 91.5 MCH 30.5 MCHC 33.4 RDW 12.9 Plt Count 274 MPV 8.2 Neut % (Auto) 82.7 H Lymph % (Auto) 9.0 [place] % (Auto) 7.1 Eos % (Auto) 0.9 Baso % (Auto) 0.3 Neut # (Auto) 11.1 H Lymph # (Auto) 1.2 [place] # (Auto) 1.0 H Eos # (Auto) 0.1 Baso # (Auto) 0.0 WBC Differential . Differential Comment . Sodium 142 Potassium 3.5 Chloride 109 H Carbon Dioxide 25.8 Anion Gap 7 BUN 6 L Creatinine 0.79 Estimated GFR 73 L Random Glucose 110 H Calcium 7.9 L Urine Color Yellow Urine Clarity Clear Urine pH 6.0 Ur Specific [place] 1.010 Urine Protein 100 H Urine Glucose (UA) Negative Urine Ketones Negative Urine Occult Blood Small H Urine Nitrate Positive H Urine Bilirubin Negative Urine Urobilinogen 0.2 Ur Leukocyte Esterase Small H Urine RBC 0-3 Urine WBC 21-50 H Urine WBC Clumps Few H Ur Squamous Epith Cells 0-5 Urine Bacteria Few H Micro UA Comment Cath-culture ind Urine Culture Comments Cath-cult indicated 10/15/17 10/15/17 10/16/17 04:40 04:40 05:20 CBC w Diff Auto diff final Auto diff final WBC 14.5 H 12.1 H RBC 3.28 L 3.23 L Hgb 10.3 L 9.9 L Hct 30.2 L 29.5 L MCV 92.1 91.2 MCH 31.5 30.6 MCHC 34.2 33.5 RDW 12.9 12.8 Plt Count 309 389 MPV 8.0 7.8 Neut % (Auto) 77.8 H 70.5 H Lymph % (Auto) 11.8 18.6 [place] % (Auto) 8.3 H 8.1 H Eos % (Auto) 1.7 2.4 Baso % (Auto) 0.4 0.4 Neut # (Auto) 11.3 H 8.5 H Lymph # (Auto) 1.7 2.3 [place] # (Auto) 1.2 H 1.0 H Eos # (Auto) 0.2 0.3 Baso # (Auto) 0.1 0.0 WBC Differential . . Differential Comment . . Sodium 143 Potassium 3.3 L Chloride 108 H Carbon Dioxide 27.0 Anion Gap 8 BUN 6 L Creatinine 0.81 Estimated GFR 71 L Random Glucose 96 Calcium 8.5 Urine Color Urine Clarity Urine pH Ur Specific [place] Urine Protein Urine Glucose (UA) Urine Ketones Urine Occult Blood Urine Nitrate Urine Bilirubin Urine Urobilinogen Ur Leukocyte Esterase Urine RBC Urine WBC Urine WBC Clumps Ur Squamous Epith Cells Urine Bacteria Micro UA Comment Urine Culture Comments 10/16/17 05:20 CBC w Diff WBC RBC Hgb Hct MCV MCH MCHC RDW Plt Count MPV Neut % (Auto) Lymph % (Auto) [place] % (Auto) Eos % (Auto) Baso % (Auto) Neut # (Auto) Lymph # (Auto) [place] # (Auto) Eos # (Auto) Baso # (Auto) WBC Differential Differential Comment Sodium 142 Potassium 3.1 L Chloride 107 Carbon Dioxide 25.2 Anion Gap 10 BUN 4 L Creatinine 0.73 Estimated GFR 80 L Random Glucose 104 Calcium 8.3 L Urine Color Urine Clarity Urine pH Ur Specific [place] Urine Protein Urine Glucose (UA) Urine Ketones Urine Occult Blood Urine Nitrate Urine Bilirubin Urine Urobilinogen Ur Leukocyte Esterase Urine RBC Urine WBC Urine WBC Clumps Ur Squamous Epith Cells Urine Bacteria Micro UA Comment Urine Culture Comments - Imaging Impressions Chest CT 10/15/17 00:00 CONCLUSION: 1. Small to moderate right effusion and tiny left effusion. 2. Bilateral airspace disease, both consolidative and groundglass in appearance and worse on the right side. Primary differential diagnosis is pneumonia or aspiration. Pulmonary hemorrhage could give a similar appearance. Chest X-Ray 10/15/17 00:00 CONCLUSION: Bilateral pleural effusions. Assessment and Plan - Assessment (1) Calculus, renal Code(s): N20.0 - Calculus of kidney Status: Acute Onset Date: ~10/09/17 (2) Sepsis Code(s): A41.9 - Sepsis, unspecified organism Status: Acute Onset Date: ~ (3) Right lower lobe pneumonia Code(s): J18.1 - Lobar pneumonia, unspecified organism Status: Acute (4) Hypertension Code(s): I10 - Essential (primary) hypertension Status: Chronic (5) Hyperlipidemia Code(s): E78.5 - Hyperlipidemia, unspecified Status: Chronic (6) Hydronephrosis of right kidney Code(s): N13.30 - Unspecified hydronephrosis Status: Acute (7) Bilateral pleural effusion Code(s): J90 - Pleural effusion, not elsewhere classified Status: Acute - Plan Plan: Her blood cultures growing out a Klebsiella organism so she will she will be continued on antibiotics. Her CT scan of the chest showed airspace disease of both lung bases worse in the right base and some bilateral pleural effusion. I will consult pulmonary, (Dr Valentino) for his opinion. Clinically she is having no pulmonary symptoms and is afebrile. Continue Levaquin and Zosyn. She will be continued on nebulizer treatments and on incentive spirometry as well. She is on SCDs for DVT prophylaxis. She is ambulating without difficulty and is off oxygen. Her potassium is a little low so some KCL will be ordered. (2) Sepsis Qualifiers: Qualified Code(s): A41.9 - Sepsis, unspecified organism
[2017-10-16] MEDS: Atenolol 25 MG Tablet PO SCH (09:55)
[2017-10-16] MEDS: Senna/Docusate Sodium 8.6/50 MG Tablet PO SCH ×2 (09:55→20:25)
[2017-10-16] MEDS ORDERED: Lidocaine PF 1% Inj 5 ML Syringe INFILTRATN ONE (12:00)
--- NOTE | 2017-10-16 18:44 | MB ---
cc: Jarrett Valentino MD, Arjun D MD DATE: 10/16/2017 REQUESTING PHYSICIAN: Dr. Nicolas Alva REASON FOR CONSULTATION: Evaluation of pneumonia and pleural effusion. HISTORY OF PRESENT ILLNESS: Ms. 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 She has a history of renal stones, hypertension. The patient came to the hospital with right flank pain on Sunday. She was found to have a renal stone. She was doing well and was sent home. The next day, she started having a fever up to 102 degrees, has some chills, did not have any cough or sputum production. No nausea, did have vomiting. She called her urologist, came back to the emergency room. She had a workup done. She was seen by Dr. Bro Marie, urologist, and she underwent cystoscopy with right retrograde study and right double-J stent insertion. She had a CT scan of the chest done, which shows she has left-sided airspace disease in the left lower lobe, small portion and infection in the right lung. She also has a small pleural effusion. Her blood culture is positive for Klebsiella. Urine culture is positive for Klebsiella. Now, she is afebrile, feels significantly better. Denies any shortness of breath. PAST MEDICAL HISTORY: Significant for history of hypertension, renal stone lithotripsy, tonsillectomy and nephrolithotomy. CURRENT MEDICATIONS: 1. Albuterol nebulizer treatment 2. Atenolol 50 mg a day. 3. Lipitor 10 mg a day. 4. Levaquin 500 mg a day. 5. Zosyn 4.5 grams q 6 hours. 6. Potassium supplement. 7. Flomax 0.4 mg a day. 8. Temazepam 15 mg at nighttime. ALLERGIES: NO KNOWN DRUG ALLERGIES. SOCIAL HISTORY: She has no history of smoking or alcohol abuse. 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 FAMILY HISTORY: She is a , lives with her daughter. She has 2 children and a grandchild. REVIEW OF SYSTEMS: Normally, she is up, around and active. Weight is stable. No DVT or pulmonary embolism. No seizure, stroke or epilepsy. PHYSICAL EXAMINATION: GENERAL: Elderly female, not in any acute distress. VITAL SIGNS: Blood pressure 139/69, heart rate 70, respirations 20, temperature 99.1. HEENT: Pupils are equal and reactive to light. Oral mucosa and nasal mucosa normal. NECK: Supple. JVP not raised. CHEST: Equal bilaterally, no rhonchi. HEART: S1, S2 normal. ABDOMEN: Benign. EXTREMITIES: No edema. CENTRAL NERVOUS SYSTEM: Alert and oriented x 3. No focal deficit. LABORATORY DATA: WBC count is 12.1, hemoglobin 9.9, hematocrit 29.5, MCV 91, platelet count 389. Sodium 142, potassium 3.1, chloride 107, CO2 of 25, BUN 4, creatinine 0.73. IMPRESSION: 1. Klebsiella pneumoniae. 2. Urinary tract infection 3. Klebsiella bacteremia. 4. Renal stone, status post double-J stent placement. 5. Hypertension. PLAN: I discussed with the patient and her daughter. Clinically, she is stable. She has small pleural effusion, tolerating well. We will monitor her. We will continue her antibiotics, Zosyn and Levaquin. Monitor her CBC. No need for thoracentesis at this time. Further treatment will depend on the course in the hospital. Thank you, Dr. Nicolas Alva, for this consult. MD CHET Johns/ , 06:04 PM , 06:15 PM
[2017-10-17] MEDS: Piperacil/Tazo 4.5 GM Premix 4.5 GM/100 ML BAG IV.SIG SCH ×4 (02:19→20:04)
[2017-10-17] MEDS: Levofloxacin 500 mg Premix Inj 500 MG/100 ML PIGGYBACK IV.SIG SCH (06:01)
[2017-10-17 06:54] LABS: Baso # (Auto) 0.1 th/mm3 (0.0-0.2); Baso % (Auto) 0.6 % (0.0-2.0); Eos # (Auto) 0.4 th/mm3 (0.0-0.4); Eos % (Auto) 3.2 % (0.0-4.0); Hematocrit 32.3 % (35.0-46.0); Hemoglobin 10.7 gm/dL (11.6-15.3); Lymph # (Auto) 2.2 th/mm3 (1.0-4.8); Mean Corpuscular HGB Conc 33.2 % (32.0-36.0); Mean Corpuscular Hemoglobin 30.9 pg (27.0-34.0); Mean Corpuscular Volume 92.9 fL (80.0-100.0); Mean Platelet Volume 7.4 fL (7.0-11.0); Mono # (Auto) 0.5 th/mm3 (0.0-0.9); Mono % (Auto) 4.3 % (0.0-8.0); Neut # (Auto) 8.1 th/mm3 (1.8-7.7); Neut % (Auto) 72.9 % (16.0-70.0); Red Blood Count 3.48 mil/mm3 (4.00-5.30); Red Cell Distribution Width 12.6 % (11.6-17.2); White Blood Count 11.3 th/mm3 (4.0-11.0)
[2017-10-17 07:04] LABS: Platelet Count 517 th/mm3 (150-450); Potassium 3.3 meq/L (3.5-5.1)
[2017-10-17 07:18] LABS: Calcium 8.9 mg/dL (8.5-10.1)
[2017-10-17 07:19] LABS: Carbon Dioxide 25.9 meq/L (21.0-32.0)
--- NOTE | 2017-10-17 07:22 | P.PN ---
Subjective Interval history: No chest pain or shortness of breath. No abdominal pain. Physical Exam Vital signs: Vital Signs 10/16/17 07:22 10/16/17 08:00 10/16/17 12:00 Temperature 97.5 F L 99.1 F Pulse Rate 74 70 Respiratory Rate 20 20 Blood Pressure 140/73 139/69 Pulse Oximetry 95 96 92 L 10/16/17 16:00 10/16/17 20:00 10/16/17 20:11 Temperature 98.4 F 99.2 F Pulse Rate 78 71 Respiratory Rate 20 16 Blood Pressure 127/62 150/73 H Pulse Oximetry 93 L 93 L 98 10/17/17 00:00 Temperature 97.8 F Pulse Rate 70 Respiratory Rate 16 Blood Pressure 144/73 H Pulse Oximetry 94 L Intake & Output 10/16/17 10/17/17 10/17/17 18:59 06:59 18:59 Intake Total 1840 / 1840 200 / 200 Balance 1840 / 1840 200 / 200 Intake: IV 1200 / 1200 200 / 200 NS Inj 1,000 ML @ 30 mls/hr IV. 1000 / 1000 CONT .Q24H [facility] Rx#:[id number] Zosyn 4.5 GM Premix 4.5 gm In 200 / 200 200 / 200 100 ml @ 200 mls/hr IV.SIG Q6H [facility] Rx#:[id number] Oral 640 / 640 Other: Date of Last Bowel Movement 10/16/17 Narrative: Exam: This is a pleasant [] in no distress. HEENT: Pupils equal, EOMs intact, mouth without lesions Neck: No JVD, neck is supple Heart: Regular rate and rhythm without murmurs or gallops Lungs: Clear to auscultation other than slight decreased breath sounds in the right lung base. Abdomen: Soft, nontender, no masses Extremities: No edema, pulses palpated, no calf tenderness Neuro: Alert, oriented, normal motor exam, sensation intact - Urinary Catheter Management Indwelling Urethral Catheter Cath placed during this visit: no Results - Labs CBC & Chem 7: 10/17/17 06:06 10/17/17 06:06 Laboratory Results - last 24 hr 10/17/17 10/17/17 06:06 06:06 CBC w Diff Auto diff final WBC 11.3 H RBC 3.48 L Hgb 10.7 L Hct 32.3 L MCV 92.9 MCH 30.9 MCHC 33.2 RDW 12.6 Plt Count 517 H D MPV 7.4 Neut % (Auto) 72.9 H Lymph % (Auto) 19.0 [place] % (Auto) 4.3 Eos % (Auto) 3.2 Baso % (Auto) 0.6 Neut # (Auto) 8.1 H Lymph # (Auto) 2.2 [place] # (Auto) 0.5 Eos # (Auto) 0.4 Baso # (Auto) 0.1 WBC Differential . Differential Comment . Sodium 142 Potassium 3.3 L Chloride 107 Laboratory Results - last 48 hr 10/16/17 10/16/17 10/17/17 05:20 05:20 06:06 CBC w Diff Auto diff final Auto diff final WBC 12.1 H 11.3 H RBC 3.23 L 3.48 L Hgb 9.9 L 10.7 L Hct 29.5 L 32.3 L MCV 91.2 92.9 MCH 30.6 30.9 MCHC 33.5 33.2 RDW 12.8 12.6 Plt Count 389 517 H D MPV 7.8 7.4 Neut % (Auto) 70.5 H 72.9 H Lymph % (Auto) 18.6 19.0 [place] % (Auto) 8.1 H 4.3 Eos % (Auto) 2.4 3.2 Baso % (Auto) 0.4 0.6 Neut # (Auto) 8.5 H 8.1 H Lymph # (Auto) 2.3 2.2 [place] # (Auto) 1.0 H 0.5 Eos # (Auto) 0.3 0.4 Baso # (Auto) 0.0 0.1 WBC Differential . . Differential Comment . . Sodium 142 Potassium 3.1 L Chloride 107 Carbon Dioxide 25.2 Anion Gap 10 BUN 4 L Creatinine 0.73 Estimated GFR 80 L Random Glucose 104 Calcium 8.3 L 10/17/17 06:06 CBC w Diff WBC RBC Hgb Hct MCV MCH MCHC RDW Plt Count MPV Neut % (Auto) Lymph % (Auto) [place] % (Auto) Eos % (Auto) Baso % (Auto) Neut # (Auto) Lymph # (Auto) [place] # (Auto) Eos # (Auto) Baso # (Auto) WBC Differential Differential Comment Sodium 142 Potassium 3.3 L Chloride 107 Carbon Dioxide Anion Gap BUN Creatinine Estimated GFR Random Glucose Calcium - Imaging Abdomen/Pelvis CT 10/11/17 10:51 CONCLUSION: Head CT 10/11/17 11:54 CONCLUSION: Chest X-Ray 10/11/17 13:45 CONCLUSION: No acute cardiopulmonary disease. There is no evidence of pneumonia. Chest X-Ray 10/13/17 20:30 . CONCLUSION: Consolidative changes right lower lobe. Chest CT 10/15/17 00:00 CONCLUSION: 1. Small to moderate right effusion and tiny left effusion. 2. Bilateral airspace disease, both consolidative and groundglass in appearance and worse on the right side. Primary differential diagnosis is pneumonia or aspiration. Pulmonary hemorrhage could give a similar appearance. Chest X-Ray 10/15/17 00:00 CONCLUSION: Bilateral pleural effusions. Assessment and Plan - Assessment (1) Calculus, renal Code(s): N20.0 - Calculus of kidney Status: Acute Onset Date: ~10/09/17 (2) Sepsis Code(s): A41.9 - Sepsis, unspecified organism Status: Acute Onset Date: ~ (3) Right lower lobe pneumonia Code(s): J18.1 - Lobar pneumonia, unspecified organism Status: Acute (4) Hypertension Code(s): I10 - Essential (primary) hypertension Status: Chronic (5) Hyperlipidemia Code(s): E78.5 - Hyperlipidemia, unspecified Status: Chronic (6) Hydronephrosis of right kidney Code(s): N13.30 - Unspecified hydronephrosis Status: Acute (7) Bilateral pleural effusion Code(s): J90 - Pleural effusion, not elsewhere classified Status: Acute - Plan Plan: Her blood cultures grew out a Klebsiella organism so she will she will be continued on antibiotics. Her CT scan of the chest showed airspace disease of both lung bases worse in the right base and some bilateral pleural effusion. Patient was seen by pulmonary, Dr Valentino, who did not recommend thoracentesis because the effusions were small. Clinically she is having no pulmonary symptoms and is afebrile. Continue Levaquin and Zosyn. She will be continued on nebulizer treatments and on incentive spirometry as well. She is on SCDs for DVT prophylaxis. She is ambulating without difficulty and is off oxygen. Her potassium is a little low so some KCL was ordered yesterday and her potassium is better today. (2) Sepsis Qualifiers: Qualified Code(s): A41.9 - Sepsis, unspecified organism
[2017-10-17] MEDS: Atenolol 25 MG Tablet PO SCH (09:04)
[2017-10-17] MEDS: Senna/Docusate Sodium 8.6/50 MG Tablet PO SCH ×2 (09:04→20:38)
[2017-10-17] MEDS: Sod Chloride 0.9% Inj 1,000 ML IV.CONT SCH (12:21)
--- NOTE | 2017-10-17 19:58 | P.PNPL ---
Subjective Interval history: 67 YOWF with Pn, Klebsiela UTI and bactremia Had double J stent No Fever Feels much better Physical Exam Vital signs: Vital Signs 10/16/17 20:00 10/16/17 20:11 10/17/17 00:00 Temperature 99.2 F 97.8 F Pulse Rate 71 70 Respiratory Rate 16 16 Blood Pressure 150/73 H 144/73 H Pulse Oximetry 93 L 98 94 L 10/17/17 08:29 10/17/17 12:18 10/17/17 13:03 Temperature 98.0 F 96.2 F L Pulse Rate 68 64 74 Respiratory Rate 18 16 Blood Pressure 158/80 H 172/81 H 145/73 H Pulse Oximetry 97 98 10/17/17 16:34 Temperature 98.7 F Pulse Rate 71 Respiratory Rate 18 Blood Pressure 166/88 H Pulse Oximetry 93 L Intake & Output 10/17/17 10/17/17 10/18/17 06:59 18:59 06:59 Intake Total 200 / 200 200 / 200 Balance 200 / 200 200 / 200 Intake: IV 200 / 200 200 / 200 Levaquin 500 mg Premix Inj 500 100 / 100 mg In 100 ml @ 100 mls/hr IV. SIG Q24H [facility] Rx#:[id number] Zosyn 4.5 GM Premix 4.5 gm In 200 / 200 100 / 100 100 ml @ 200 mls/hr IV.SIG Q6H [facility] Rx#:[id number] Other: # Voids 5 Date of Last Bowel Movement 10/16/17 # Bowel Movements 2 GENERAL: WBWN WF,NAD SKIN: Warm and dry. HEAD: Normocephalic. EYES: No scleral icterus. No injection or drainage. NECK: Supple, trachea midline. No JVD or lymphadenopathy. CARDIOVASCULAR: Regular rate and rhythm without murmurs, gallops, or rubs. RESPIRATORY: Breath sounds equal bilaterally. No accessory muscle use. GASTROINTESTINAL: Abdomen soft, non-tender, nondistended. MUSCULOSKELETAL: No cyanosis, or edema. BACK: Nontender without obvious deformity. No CVA tenderness. - Urinary Catheter Management Indwelling Urethral Catheter Cath placed during this visit: no Assessment and Plan - Plan IMPRESSION: 1. Klebsiella pneumoniae. 2. Urinary tract infection 3. Klebsiella bacteremia. 4. Renal stone, status post double-J stent placement. 5. Hypertension. PLAN: Cont Abx Rpt Blood culture Stable on RA
[2017-10-18] MEDS: Piperacil/Tazo 4.5 GM Premix 4.5 GM/100 ML BAG IV.SIG SCH ×2 (02:04→08:57)
[2017-10-18] MEDS: Levofloxacin 500 mg Premix Inj 500 MG/100 ML PIGGYBACK IV.SIG SCH (05:33)
[2017-10-18 06:27] LABS: Baso # (Auto) 0.1 th/mm3 (0.0-0.2); Baso % (Auto) 0.8 % (0.0-2.0); Eos # (Auto) 0.5 th/mm3 (0.0-0.4); Eos % (Auto) 3.8 % (0.0-4.0); Hematocrit 35.4 % (35.0-46.0); Hemoglobin 11.6 gm/dL (11.6-15.3); Lymph # (Auto) 2.5 th/mm3 (1.0-4.8); Lymph % (Auto) 20.9 % (9.0-44.0); Mean Corpuscular HGB Conc 32.9 % (32.0-36.0); Mean Corpuscular Volume 91.3 fL (80.0-100.0); Mean Platelet Volume 7.3 fL (7.0-11.0); Mono # (Auto) 0.7 th/mm3 (0.0-0.9); Mono % (Auto) 6.2 % (0.0-8.0); Neut # (Auto) 8.2 th/mm3 (1.8-7.7); Neut % (Auto) 68.3 % (16.0-70.0); Platelet Count 635 th/mm3 (150-450); Red Blood Count 3.88 mil/mm3 (4.00-5.30); Red Cell Distribution Width 12.5 % (11.6-17.2)
[2017-10-18 06:38] LABS: Potassium 3.6 meq/L (3.5-5.1)
[2017-10-18 06:40] LABS: Calcium 9.1 mg/dL (8.5-10.1)
[2017-10-18 06:41] LABS: Carbon Dioxide 23.8 meq/L (21.0-32.0)
--- NOTE | 2017-10-18 07:39 | P.PN ---
Subjective Interval history: No shortness of breath. No abdominal pain. She is ambulating. Physical Exam Vital signs: Vital Signs 10/17/17 08:29 10/17/17 12:18 10/17/17 13:03 Temperature 98.0 F 96.2 F L Pulse Rate 68 64 74 Respiratory Rate 18 16 Blood Pressure 158/80 H 172/81 H 145/73 H Pulse Oximetry 97 98 10/17/17 16:34 10/17/17 20:00 10/18/17 00:00 Temperature 98.7 F 99.1 F 98.7 F Pulse Rate 71 78 79 Respiratory Rate 18 20 20 Blood Pressure 166/88 H 140/88 129/89 Pulse Oximetry 93 L 95 94 L Intake & Output 10/17/17 10/18/17 10/18/17 18:59 06:59 18:59 Intake Total 200 / 200 780 / 780 Balance 200 / 200 780 / 780 Intake: IV 200 / 200 300 / 300 Levaquin 500 mg Premix Inj 500 100 / 100 100 / 100 mg In 100 ml @ 100 mls/hr IV. SIG Q24H [facility] Rx#:[id number] Zosyn 4.5 GM Premix 4.5 gm In 100 / 100 200 / 200 100 ml @ 200 mls/hr IV.SIG Q6H [facility] Rx#:[id number] Oral 480 / 480 Other: # Voids 5 10 # Bowel Movements 2 1 Narrative: Exam: This is a pleasant [] in no distress. HEENT: Pupils equal, EOMs intact, mouth without lesions Neck: No JVD, neck is supple Heart: Regular rate and rhythm without murmurs or gallops Lungs: Clear to auscultation other than slight decreased breath sounds in the right lung base. Abdomen: Soft, nontender, no masses Extremities: No edema, pulses palpated, no calf tenderness Neuro: Alert, oriented, normal motor exam, sensation intact - Urinary Catheter Management Indwelling Urethral Catheter Cath placed during this visit: no Results - Labs CBC & Chem 7: 10/18/17 05:14 10/18/17 05:14 Laboratory Results - last 24 hr 10/17/17 10/18/17 10/18/17 14:00 05:14 05:14 CBC w Diff Auto diff final WBC 12.0 H RBC 3.88 L Hgb 11.6 Hct 35.4 MCV 91.3 MCH 30.0 MCHC 32.9 RDW 12.5 Plt Count 635 H MPV 7.3 Neut % (Auto) 68.3 Lymph % (Auto) 20.9 [place] % (Auto) 6.2 Eos % (Auto) 3.8 Baso % (Auto) 0.8 Neut # (Auto) 8.2 H Lymph # (Auto) 2.5 [place] # (Auto) 0.7 Eos # (Auto) 0.5 H Baso # (Auto) 0.1 WBC Differential . Differential Comment . Sodium 140 Potassium 3.6 3.6 Chloride 106 Carbon Dioxide 23.8 Anion Gap 10 BUN 8 Creatinine 0.75 Estimated GFR 78 L Random Glucose 104 Calcium 9.1 Laboratory Results - last 72 hr 10/16/17 10/16/17 10/17/17 05:20 05:20 06:06 CBC w Diff Auto diff final Auto diff final WBC 12.1 H 11.3 H RBC 3.23 L 3.48 L Hgb 9.9 L 10.7 L Hct 29.5 L 32.3 L MCV 91.2 92.9 MCH 30.6 30.9 MCHC 33.5 33.2 RDW 12.8 12.6 Plt Count 389 517 H D MPV 7.8 7.4 Neut % (Auto) 70.5 H 72.9 H Lymph % (Auto) 18.6 19.0 [place] % (Auto) 8.1 H 4.3 Eos % (Auto) 2.4 3.2 Baso % (Auto) 0.4 0.6 Neut # (Auto) 8.5 H 8.1 H Lymph # (Auto) 2.3 2.2 [place] # (Auto) 1.0 H 0.5 Eos # (Auto) 0.3 0.4 Baso # (Auto) 0.0 0.1 WBC Differential . . Differential Comment . . Sodium 142 Potassium 3.1 L Chloride 107 Carbon Dioxide 25.2 Anion Gap 10 BUN 4 L Creatinine 0.73 Estimated GFR 80 L Random Glucose 104 Calcium 8.3 L 10/17/17 10/17/17 10/18/17 06:06 14:00 05:14 CBC w Diff Auto diff final WBC 12.0 H RBC 3.88 L Hgb 11.6 Hct 35.4 MCV 91.3 MCH 30.0 MCHC 32.9 RDW 12.5 Plt Count 635 H MPV 7.3 Neut % (Auto) 68.3 Lymph % (Auto) 20.9 [place] % (Auto) 6.2 Eos % (Auto) 3.8 Baso % (Auto) 0.8 Neut # (Auto) 8.2 H Lymph # (Auto) 2.5 [place] # (Auto) 0.7 Eos # (Auto) 0.5 H Baso # (Auto) 0.1 WBC Differential . Differential Comment . Sodium 142 Potassium 3.3 L 3.6 Chloride 107 Carbon Dioxide 25.9 Anion Gap 9 BUN 5 L Creatinine 0.79 Estimated GFR 73 L Random Glucose 102 Calcium 8.9 10/18/17 05:14 CBC w Diff WBC RBC Hgb Hct MCV MCH MCHC RDW Plt Count MPV Neut % (Auto) Lymph % (Auto) [place] % (Auto) Eos % (Auto) Baso % (Auto) Neut # (Auto) Lymph # (Auto) [place] # (Auto) Eos # (Auto) Baso # (Auto) WBC Differential Differential Comment Sodium 140 Potassium 3.6 Chloride 106 Carbon Dioxide 23.8 Anion Gap 10 BUN 8 Creatinine 0.75 Estimated GFR 78 L Random Glucose 104 Calcium 9.1 - Imaging Abdomen/Pelvis CT 10/11/17 10:51 CONCLUSION: Head CT 10/11/17 11:54 CONCLUSION: Chest X-Ray 10/11/17 13:45 CONCLUSION: No acute cardiopulmonary disease. There is no evidence of pneumonia. Chest X-Ray 10/13/17 20:30 . CONCLUSION: Consolidative changes right lower lobe. Chest CT 10/15/17 00:00 CONCLUSION: 1. Small to moderate right effusion and tiny left effusion. 2. Bilateral airspace disease, both consolidative and groundglass in appearance and worse on the right side. Primary differential diagnosis is pneumonia or aspiration. Pulmonary hemorrhage could give a similar appearance. Chest X-Ray 10/15/17 00:00 CONCLUSION: Bilateral pleural effusions. Assessment and Plan - Assessment (1) Calculus, renal Code(s): N20.0 - Calculus of kidney Status: Acute Onset Date: ~10/09/17 (2) Sepsis Code(s): A41.9 - Sepsis, unspecified organism Status: Acute Onset Date: ~ (3) Right lower lobe pneumonia Code(s): J18.1 - Lobar pneumonia, unspecified organism Status: Acute (4) Hypertension Code(s): I10 - Essential (primary) hypertension Status: Chronic (5) Hyperlipidemia Code(s): E78.5 - Hyperlipidemia, unspecified Status: Chronic (6) Hydronephrosis of right kidney Code(s): N13.30 - Unspecified hydronephrosis Status: Acute (7) Bilateral pleural effusion Code(s): J90 - Pleural effusion, not elsewhere classified Status: Acute - Plan Plan: Her blood cultures earlier grew out a Klebsiella organism so she will she will be continued on antibiotics. Her CT scan of the chest showed airspace disease of both lung bases worse in the right base and some bilateral pleural effusion. Patient was seen by pulmonary, Dr Valentino, who did not recommend thoracentesis because the effusions were small. Clinically she is having no pulmonary symptoms and is afebrile. She is on IV Levaquin and Zosyn. I will talk with Dr Valentino about changing to oral Levaquin today and possible home tomorrow. She will be continued on nebulizer treatments and on incentive spirometry as well. She is on SCDs for DVT prophylaxis. She is ambulating without difficulty and is off oxygen. A repeat chest x-ray ordered for today to see if her lungs are stable. Clinically she has no complaints from a pulmonary standpoint. (2) Sepsis Qualifiers: Qualified Code(s): A41.9 - Sepsis, unspecified organism
[2017-10-18] MEDS: Senna/Docusate Sodium 8.6/50 MG Tablet PO SCH ×2 (08:56→20:51)
[2017-10-18] MEDS: Atenolol 25 MG Tablet PO SCH (08:56)
--- NOTE | 2017-10-18 09:31 | XR ---
EXAM DATE: 10/18/2017 9:27 AM EDT AGE/SEX: 67 years / Female INDICATIONS: . Pneumonia. CLINICAL DATA: This is the patient's subsequent encounter. Patient reports that signs and symptoms h ave been present for 1 week and indicates a pain score of 0/10. MEDICAL/SURGICAL HISTORY: Hypercholesterolemia. Renal calculi. Hypertension. Tonsillectomy. R marlee surgery. COMPARISON: [facility], CHEST 2V AP&LAT, 10/15/2017. . FINDINGS: Today's exam is compared to the prior study. The lungs are clear and well-aerated. No focal or acute pulmonary infiltrates are demonstrated. There continues to be some mild blunting of both costophrenic angles suggestive of small effusions. These appear to be decreased compared to the prior examination . The heart size is within normal limits and stable. The bony structures are stable. CONCLUSION: 1. Small decreasing bilateral effusions. 2. No new or acute intrathoracic disease. Electronically signed by: Mike Hodges MD 10/18/2017 9:30 AM EDT
--- NOTE | 2017-10-18 18:10 | P.PNPL ---
Subjective Interval history: 67 YOWF with Pn, Klebsiela UTI and bactremia Had double J stent No Fever Feels much better Rpt BC Negative so far Physical Exam Vital signs: Vital Signs 10/17/17 20:00 10/18/17 00:00 10/18/17 08:31 Temperature 99.1 F 98.7 F 99.6 F Pulse Rate 78 79 77 Respiratory Rate 20 20 16 Blood Pressure 140/88 129/89 139/77 Pulse Oximetry 95 94 L 95 10/18/17 13:51 10/18/17 17:49 Temperature 97.4 F L Pulse Rate 76 80 Respiratory Rate 16 20 Blood Pressure 153/78 H 141/76 H Pulse Oximetry 95 94 L Intake & Output 10/17/17 10/18/17 10/18/17 18:59 06:59 18:59 Intake Total 200 / 200 780 / 780 Balance 200 / 200 780 / 780 Intake: IV 200 / 200 300 / 300 Levaquin 500 mg Premix Inj 500 100 / 100 100 / 100 mg In 100 ml @ 100 mls/hr IV. SIG Q24H MARILY Rx#:[id number] Zosyn 4.5 GM Premix 4.5 gm In 100 / 100 200 / 200 100 ml @ 200 mls/hr IV.SIG Q6H MARILY Rx#:[id number] Oral 480 / 480 Other: # Voids 5 10 # Bowel Movements 2 1 GENERAL: WBWn,NAD SKIN: Warm and dry. HEAD: Normocephalic. EYES: No scleral icterus. No injection or drainage. NECK: Supple, trachea midline. No JVD or lymphadenopathy. CARDIOVASCULAR: Regular rate and rhythm without murmurs, gallops, or rubs. RESPIRATORY: Breath sounds equal bilaterally. No accessory muscle use. GASTROINTESTINAL: Abdomen soft, non-tender, nondistended. MUSCULOSKELETAL: No cyanosis, or edema. BACK: Nontender without obvious deformity. No CVA tenderness. - Urinary Catheter Management Indwelling Urethral Catheter Cath placed during this visit: no Assessment and Plan - Plan IMPRESSION: 1. Klebsiella pneumoniae. 2. Urinary tract infection 3. Klebsiella bacteremia. 4. Renal stone, status post double-J stent placement. 5. Hypertension. PLAN: Cont Abx Stable on RA LISANDRO Edouard DC plans for in AM
[2017-10-18] MEDS: Sod Chloride 0.9% Inj 1,000 ML IV.CONT SCH (18:29)
[2017-10-19 05:58] LABS: Baso # (Auto) 0.1 th/mm3 (0.0-0.2); Baso % (Auto) 0.5 % (0.0-2.0); Eos # (Auto) 0.4 th/mm3 (0.0-0.4); Eos % (Auto) 2.8 % (0.0-4.0); Hematocrit 35.4 % (35.0-46.0); Lymph # (Auto) 2.7 th/mm3 (1.0-4.8); Lymph % (Auto) 19.5 % (9.0-44.0); Mean Corpuscular HGB Conc 33.8 % (32.0-36.0); Mean Corpuscular Hemoglobin 30.8 pg (27.0-34.0); Mean Platelet Volume 7.2 fL (7.0-11.0); Mono # (Auto) 0.7 th/mm3 (0.0-0.9); Mono % (Auto) 5.3 % (0.0-8.0); Neut # (Auto) 9.7 th/mm3 (1.8-7.7); Neut % (Auto) 71.9 % (16.0-70.0); Platelet Count 696 th/mm3 (150-450); Red Blood Count 3.89 mil/mm3 (4.00-5.30); Red Cell Distribution Width 12.6 % (11.6-17.2); White Blood Count 13.6 th/mm3 (4.0-11.0)
[2017-10-19 06:07] LABS: Potassium 3.9 meq/L (3.5-5.1)
--- NOTE | 2017-10-19 07:29 | P.DS ---
Date of admission: 10/12/17 13:03 Primary care physician: Nataliya Miller MD Attending physician on discharge: Nciolas Patito Alva Anticipated date of discharge: 10/19/17 Brief History from admission: 67 y/o female with prior hx of kidney stones woke with right flank pain 2 days ago that she recognized as symptomatic of her kidney stones. She presented to the ER where imaging confirmed the presence of the stones. She was discharged on toradol and hydrocodone with instructions to f/u with urology. She states she called the urologist office multiple times with no response. She denies having any further flank pain. She did however develope a fever up to 102 that prompted her return to the ER. She states she had been urinating unitl earlier today. She denies cramping or nausea. Her last bout of kdiney stones was over 10 yrs ago. She states one bout was so bad she states they had to do surgery to "clean them out" She tells me she was told she had 2 types of stones, one was calcium she doesnt know the other. In the ER her temp was 102 there was a questionable period of confusion felt to be due to the temp. She tells me that she feels much better now that her temp is improved. CT in the ER showed large stone 6x9x9 in the rt ureter with high grade obstruction with hydronephrosis and hydroureter. Per Dr Siegel she attempted to contact urology and I have admitted the patient for their evaluation and treatment. (This is the history that was provided by Dr Harris who was the admitting physician on her day of admission) DS: Diagnosis - Discharge Diagnosis (1) Calculus, renal Status: Acute Diagnosis: Principal (2) Sepsis Status: Acute Diagnosis: Principal (3) Right lower lobe pneumonia Status: Acute Diagnosis: Principal (4) Hypertension Status: Chronic Diagnosis: Secondary (5) Hyperlipidemia Status: Chronic Diagnosis: Secondary (6) Hydronephrosis of right kidney Status: Acute Diagnosis: Principal (7) Bilateral pleural effusion Status: Acute Diagnosis: Principal DS: Medications - Discharge Medications Prescriptions: levofloxacin 500 mg PO DAILY@1100 #7 tab tamsulosin 0.4 mg PO DAILY #30 cap DS: Summary Hospital Course: Patient was admitted for pain control and evaluation by in right hydronephrosis as well as for antibiotic therapy because of elevated fever and concern for urosepsis. She was given vancomycin and Zosyn in the emergency room. She was seen by Dr. Bro Marie for urology evaluation. She was taken to the operating room on 10/12/2017 and underwent a cystoscopy, right retrograde study, and insertion of a right doubleJ stent. She was maintained on Zosyn IV. Her urine culture grew out Klebsiella organism as well as her blood culture so she was continued on the IV Zosyn. 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 A chest x-ray obtained showed some right lower lobe consolidation. She also had some small pleural effusions. Levaquin was added intravenously for possible pneumonia. She was given duo nebulizer treatments. Consultation was obtained with a planning management it specialist, Dr. Valentino. Her IV fluid rate was decreased as well and she was given a dose of Lasix IV 1. She clinically has improved and she has had no further flank pain or abdominal pain and is breathing well at this time with good oxygen saturations on room air. The Zosyn has been stopped because the organism is sensitive to Levaquin. She has been placed on oral Levaquin and will be discharged on that for 7 more days. She also be discharged on Flomax since she was placed on that by the urologist. She will follow-up with the urologist in 1-2 weeks in regard to her kidney stone. She will follow-up with her PCP as well within the next week. I have ordered for her to do an outpatient CBC and BMP on 10/22/2017. Discharge medications: Tamsulosin 0.4mg daily Levaquin 500mg daily x 7 days Atenolol 25mg daily Atorvastatin 10mg daily - Time Spent with Patient Total time spent providing and/or coordinating discharge services: Greater than 30 minutes - Quality: VTE Deep Vein Thrombosis/Pulmonary Embolism Present on Admission: No Exam Vital signs: Vital Signs 10/18/17 08:31 10/18/17 13:51 10/18/17 17:49 Temperature 99.6 F 97.4 F L Pulse Rate 77 76 80 Respiratory Rate 16 16 20 Blood Pressure 139/77 153/78 H 141/76 H Pulse Oximetry 95 95 94 L 10/18/17 20:00 10/19/17 00:00 Temperature 98.6 F 96.5 F L Pulse Rate 75 75 Respiratory Rate 20 20 Blood Pressure 150/87 H 136/82 Pulse Oximetry 93 L 96 Intake & Output 10/18/17 10/18/17 10/19/17 06:59 18:59 06:59 Intake Total 780 / 780 1100 / 1100 1000 / 1000 Balance 780 / 780 1100 / 1100 1000 / 1000 Weight 83.9 kg Intake: IV 300 / 300 100 / 100 1000 / 1000 NS Inj 1,000 ML @ 30 mls/hr IV. 1000 / 1000 CONT .Q24H MARILY Rx#:[id number] Levaquin 500 mg Premix Inj 500 100 / 100 mg In 100 ml @ 100 mls/hr IV. SIG Q24H MARILY Rx#:[id number] Zosyn 4.5 GM Premix 4.5 gm In 200 / 200 100 / 100 100 ml @ 200 mls/hr IV.SIG Q6H MARILY Rx#:[id number] Oral 480 / 480 1000 / 1000 Other: # Voids 10 3 # Bowel Movements 1 1 Narrative: Exam: This is a pleasant white female in no distress. HEENT: Pupils equal, EOMs intact, mouth without lesions Neck: No JVD, neck is supple Heart: Regular rate and rhythm without murmurs or gallops Lungs: Clear to auscultation Abdomen: Soft, nontender, no masses Extremities: No edema, pulses palpated, no calf tenderness Neuro: Alert, oriented, normal motor exam, sensation intact Results Procedures completed during hospitalization: On 10/12/2017 a cystoscopy, right retrograde study, and insertion of a right doubleJ stent Completed studies during hospitalization: Microbiology 10/17/17 20:18 Blood - Peripheral Aerobic Blood Culture - Preliminary No growth in 1 day 10/17/17 20:18 Blood - Peripheral Anaerobic Blood Culture - Preliminary No growth in 1 day 10/17/17 20:12 Blood - Peripheral Aerobic Blood Culture - Preliminary No growth in 1 day 10/17/17 20:12 Blood - Peripheral Anaerobic Blood Culture - Preliminary No growth in 1 day 10/11/17 13:30 Clean Catch Urine Urine Culture - Final Klebsiella oxytoca 10/11/17 12:00 Blood - Peripheral Aerobic Blood Culture - Final Klebsiella oxytoca 10/11/17 12:00 Blood - Peripheral Anaerobic Blood Culture - Final Klebsiella oxytoca 10/11/17 11:55 Blood - Peripheral Aerobic Blood Culture - Final Klebsiella oxytoca 10/11/17 11:55 Blood - Peripheral Anaerobic Blood Culture - Final Klebsiella oxytoca Laboratory Results - last 72 hr 10/17/17 10/17/17 10/17/17 06:06 06:06 14:00 CBC w Diff Auto diff final WBC 11.3 H RBC 3.48 L Hgb 10.7 L Hct 32.3 L MCV 92.9 MCH 30.9 MCHC 33.2 RDW 12.6 Plt Count 517 H D MPV 7.4 Neut % (Auto) 72.9 H Lymph % (Auto) 19.0 Edgar % (Auto) 4.3 Eos % (Auto) 3.2 Baso % (Auto) 0.6 Neut # (Auto) 8.1 H Lymph # (Auto) 2.2 Edgar # (Auto) 0.5 Eos # (Auto) 0.4 Baso # (Auto) 0.1 WBC Differential . Differential Comment . Sodium 142 Potassium 3.3 L 3.6 Chloride 107 Carbon Dioxide 25.9 Anion Gap 9 BUN 5 L Creatinine 0.79 Estimated GFR 73 L Random Glucose 102 Calcium 8.9 10/18/17 10/18/17 10/19/17 05:14 05:14 05:00 CBC w Diff Auto diff final Auto diff final WBC 12.0 H 13.6 H RBC 3.88 L 3.89 L Hgb 11.6 12.0 Hct 35.4 35.4 MCV 91.3 91.0 MCH 30.0 30.8 MCHC 32.9 33.8 RDW 12.5 12.6 Plt Count 635 H 696 H MPV 7.3 7.2 Neut % (Auto) 68.3 71.9 H Lymph % (Auto) 20.9 19.5 Edgar % (Auto) 6.2 5.3 Eos % (Auto) 3.8 2.8 Baso % (Auto) 0.8 0.5 Neut # (Auto) 8.2 H 9.7 H Lymph # (Auto) 2.5 2.7 Edgar # (Auto) 0.7 0.7 Eos # (Auto) 0.5 H 0.4 Baso # (Auto) 0.1 0.1 WBC Differential . . Differential Comment . . Sodium 140 Potassium 3.6 Chloride 106 Carbon Dioxide 23.8 Anion Gap 10 BUN 8 Creatinine 0.75 Estimated GFR 78 L Random Glucose 104 Calcium 9.1 10/19/17 05:00 CBC w Diff WBC RBC Hgb Hct MCV MCH MCHC RDW Plt Count MPV Neut % (Auto) Lymph % (Auto) Edgar % (Auto) Eos % (Auto) Baso % (Auto) Neut # (Auto) Lymph # (Auto) Edgar # (Auto) Eos # (Auto) Baso # (Auto) WBC Differential Differential Comment Sodium 141 Potassium 3.9 Chloride 109 H Carbon Dioxide 23.0 Anion Gap 9 BUN 10 Creatinine 0.74 Estimated GFR 79 L Random Glucose 107 H Calcium 9.0 Labs on day of discharge: Labs from last 24 hours 10/19/17 10/19/17 05:00 05:00 CBC w Diff Auto diff final WBC 13.6 H RBC 3.89 L Hgb 12.0 Hct 35.4 MCV 91.0 MCH 30.8 MCHC 33.8 RDW 12.6 Plt Count 696 H MPV 7.2 Neut % (Auto) 71.9 H Lymph % (Auto) 19.5 Edgar % (Auto) 5.3 Eos % (Auto) 2.8 Baso % (Auto) 0.5 Neut # (Auto) 9.7 H Lymph # (Auto) 2.7 Edgar # (Auto) 0.7 Eos # (Auto) 0.4 Baso # (Auto) 0.1 WBC Differential . Differential Comment . Sodium 141 Potassium 3.9 Chloride 109 H Carbon Dioxide 23.0 Anion Gap 9 BUN 10 Creatinine 0.74 Estimated GFR 79 L Random Glucose 107 H Calcium 9.0 Preliminary micro results at discharge 10/17/17 20:18 Aerobic Blood Culture - Preliminary Blood - Peripheral No growth in 1 day Anaerobic Blood Culture - Preliminary No growth in 1 day 10/17/17 20:12 Aerobic Blood Culture - Preliminary Blood - Peripheral No growth in 1 day Anaerobic Blood Culture - Preliminary No growth in 1 day - Impressions ITS Impressions Abdomen/Pelvis CT 10/11/17 10:51 CONCLUSION: Head CT 10/11/17 11:54 CONCLUSION: Chest CT 10/15/17 00:00 CONCLUSION: 1. Small to moderate right effusion and tiny left effusion. 2. Bilateral airspace disease, both consolidative and groundglass in appearance and worse on the right side. Primary differential diagnosis is pneumonia or aspiration. Pulmonary hemorrhage could give a similar appearance. Chest X-Ray 10/18/17 00:00 CONCLUSION: 1. Small decreasing bilateral effusions. 2. No new or acute intrathoracic disease. Discharge Plan - Discharge Disposition Patient Disposition: 01 Discharge Home - Discharge Condition Condition: Stable - Discharge Order Discharge Orders: Discharge Order (Routine); Ordered 10/19/17 Ordered By: Nicolas Alva - Discharge Details Anticipated Discharge Date: 10/19/17 - Physicians Team Primary Care Provider: Nataliya Miller Attending Provider: Carola Villarreal Other Providers: Bro Marie DO ; Jarrett Valentino MD
[2017-10-19] MEDS: Atenolol 25 MG Tablet PO SCH (08:21)
[2017-10-19] MEDS: Senna/Docusate Sodium 8.6/50 MG Tablet PO SCH (08:22)
[2017-10-19 08:57] VITALS: RESP 16
[2017-10-19] MEDS ORDERED: levoFLOXacin 500 MG Tablet PO SCH (11:00)
[2017-10-23 18:02] VITALS: BP 140/78; PULSE 74; TEMP 97.5; O2SAT 95
== END 2017-10-19 12:27 | disposition home or self-care (01) ==
LOC: PHED 10:22 → INTOOBSV 14:47 → PHEDA 14:47 → PH3 16:30
PROVIDERS: ADMIT Legal Medicine; ATTEND Legal Medicine